=== PATIENT | male | born 1965 | race Caucasian/White ===

== ENCOUNTER 2020-11-27 06:31 | Outpatient (REF) | payer OTHER, SELFPAY ==
[2020-11-27 12:04] LABS: Alanine Aminotransferase 17 U/L (0-40); Albumin Level 4.2 g/dL (3.5-5.0); Alkaline Phosphatase 88 U/L (39-117); Anion Gap 12 (12-20); Aspartate Amino Transferase 16 U/L (5-37); Bilirubin Total 0.5 mg/dL (0.0-1.0); Blood Urea Nitrogen 20 mg/dL (9-16); Calcium 9.2 mg/dL (8.4-10.2); Carbon Dioxide 29 mmol/L (22-29); Chloride 105 mmol/L (96-108); Cholesterol 238 mg/dL; Estimated Glomerular Filt Rate > 60; Glucose Fasting 107 mg/dL (60-99); HDL Cholesterol 31 mg/dL; Potassium 4.7 mmol/L (3.3-5.1); Sodium 141 mmol/L (135-145); Total Protein 7.3 g/dL (6.5-8.0); Triglycerides 409 mg/dL
[2020-11-27 12:31] LABS: Prostate Specific Antigen Scr 0.93 ng/mL (<0.05-4.0); TSH reflex Free T4 1.27 uIU/mL (0.32-4.0)
== END 2020-11-27 06:32 | disposition home or self-care (01) ==
LOC: HO.HMGCLDS 06:31
PROVIDERS: PCP Nurse Practitioner Family; Visit Provider Nurse Practitioner Family
DX: Z00.00 Encounter for general adult medical examination without abnormal findings (principal); Z12.5 Encounter for screening for malignant neoplasm of prostate
CPT/HCPCS: 36415; 80053; 80061; 84153; 84443

== ENCOUNTER 2021-06-08 06:02 | Outpatient (REF) | payer OTHER, SELFPAY ==
[2021-06-08 11:47] LABS: Alanine Aminotransferase 19 U/L (0-40); Albumin Level 4.4 g/dL (3.5-5.0); Alkaline Phosphatase 74 U/L (39-117); Anion Gap 14 (12-20); Aspartate Amino Transferase 17 U/L (5-37); Bilirubin Total 0.8 mg/dL (0.0-1.0); Blood Urea Nitrogen 12 mg/dL (9-16); Calcium 9.7 mg/dL (8.4-10.2); Carbon Dioxide 26 mmol/L (22-29); Chloride 106 mmol/L (96-108); Cholesterol 212 mg/dL; Estimated Glomerular Filt Rate > 60; Glucose Fasting 100 mg/dL (60-99); HDL Cholesterol 32 mg/dL; LDL Cholesterol Calculated 130 mg/dl; Potassium 4.5 mmol/L (3.3-5.1); Sodium 141 mmol/L (135-145); Total Protein 7.6 g/dL (6.5-8.0); Triglycerides 250 mg/dL
== END 2021-06-08 06:03 | disposition home or self-care (01) ==
LOC: HO.HMGCLDS 06:02
PROVIDERS: PCP Nurse Practitioner Family; Visit Provider Nurse Practitioner Family
DX: E78.5 Hyperlipidemia, unspecified (principal)
CPT/HCPCS: 36415; 80053; 80061

== ENCOUNTER 2021-12-07 07:45 | Outpatient (REF) | payer OTHER, SELFPAY ==
[2021-12-07 11:59] LABS: Cholesterol 222 mg/dL; HDL Cholesterol 37 mg/dL; LDL Cholesterol Calculated 154 mg/dl; Triglycerides 156 mg/dL
== END 2021-12-07 07:46 | disposition home or self-care (01) ==
LOC: HO.HMGCLDS 07:45
PROVIDERS: Visit Provider Nurse Practitioner Family
DX: E78.5 Hyperlipidemia, unspecified (principal)
CPT/HCPCS: 36415; 80061

== ENCOUNTER 2022-01-11 06:03 | Outpatient (REF) | payer OTHER, SELFPAY ==
[2022-01-11 11:32] LABS: MANUAL DIFF FLAG NO
[2022-01-11 11:48] LABS: Basophils Percent Auto 0.3 % (0-2); Eosinophils Absolute Auto 0.3 X10*3/uL (0.0-0.4); Eosinophils Percent Auto 3.4 % (0-4); Hemoglobin 15.1 g/dl (14.0-18.0); Imm Gran Abs Auto 0.02 X10*3/uL (0.00-0.03); Imm Gran Pct Auto 0.2 % (0.0-0.4); Lymphocytes Absolute Auto 2.3 X10*3/uL (1.2-4.9); Lymphocytes Percent Auto 25.9 % (20-40); Mean Corpuscular HGB Conc 33.6 g/dl (31.0-36.0); Mean Corpuscular Hemoglobin 30.8 pg (27.0-33.0); Mean Corpuscular Volume 91.6 fL (80.0-98.0); Mean Platelet Volume 10.7 fL (9.4-12.4); Monocytes Absolute Auto 0.8 X10*3/uL (0.1-1.2); Monocytes Percent Auto 8.4 % (2-11); Neutrophils Absolute Auto 5.6 x10*3/uL (2.0-8.3); Neutrophils Percent Auto 61.8 % (45-73); Platelet Count 180 X10*3/uL (160-400); Red Blood Count 4.91 X10*6/uL (4.60-5.80); Red Cell Distribution Width 13.2 % (11.0-16.0)
[2022-01-11 12:37] LABS: HBS Num1 2.23 mIU/mL (0-7.99); HBsAGNum1 0.31 S/CO (0.00-0.99); Hepatitis B Core Antibody Nonreactive (Nonreactive); Hepatitis B Surface Antigen Negative (Negative); ~HepC Num1 0.09 S/CO (0.00-0.79); ~Hepatitis B Surface Antibody NONREACTIVE (Nonreactive); ~Hepatitis C Antibody Nonreactive (Nonreactive)
[2022-01-12 05:00] LABS: Hepatitis A Antibody IgM 0.11 Index (0-0.79); ~Hepatitis A Antibody IgM Nonreactive (Nonreactive)
[2022-01-14 00:52] LABS: TS Negative Control Passed; TS Panel A 2; TS Panel B 2; TS Positive Control Passed; TSpotTB Negative (Negative)
== END 2022-01-11 06:04 | disposition home or self-care (01) ==
LOC: HO.HMGCLDS 06:03
PROVIDERS: PCP Nurse Practitioner Family; Visit Provider Nurse Practitioner Family
DX: Z01.84 Encounter for antibody response examination (principal); Z11.1 Encounter for screening for respiratory tuberculosis; Z28.39 Other underimmunization status
CPT/HCPCS: 36415; 85025; 86481; 86704; 86706; 86709; 86735; 86762; 86765; 86787; 86803; 87340

== ENCOUNTER 2022-01-14 13:23 | Outpatient (REF) | payer OTHER, SELFPAY ==
--- NOTE | ~2022-01-14 | CT_ITS ---
EXAMINATION: CT CHEST SCREENING CLINICAL INFORMATION: Smoker. Lung screening COMPARISON: None. TECHNIQUE: Multidetector volumetric CT imaging of the chest is performed without contrast using low dose technique. Additional 2D coronal and sagittal reformatted images and axial 3D maximum intensity projection (MIP) images are generated on the CT workstation. This CT examination was performed using dose optimization techniques as appropriate, variously including the following: *Automated exposure control *Adjustment of mA and/or kV according to patient size (this includes techniques or standardized protocols for targeted exams where dose is matched to indication/reason for exam; i.e. extremities or head) *Use of iterative reconstruction technique DLP: 344 mGy-cm FINDINGS: LUNGS: The lungs are well expanded and clear of acute pneumonic process. There is a 3 mm nodular calcification in the right lower lobe axial image 344/7. No additional pulmonary nodules, mass or consolidation are seen. MEDIASTINUM: The thyroid lobes are symmetric and normal. The central trachea and the bronchi are widely patent. The heart size and the great vessels are normal in caliber. No pericardial effusion is seen. PLEURA: There is no pleural effusion. No pleural mass or thickening. AXILLA: No abnormal axillary lymph nodes are seen. UPPER ABDOMEN: Visualized liver, spleen, pancreas and bilateral adrenal glands appear unremarkable. OSSEOUS STRUCTURES: There is moderate ventral spondylosis of the mid and lower dorsal spine. No lytic process. CT/CT lung screening IMPRESSION: Solitary 3 mm calcified nodule. No additional noncalcified nodules, mass or consolidation. ASSESSMENT: Lung-RADS category 2: Benign. RECOMMENDATION: Low-dose annual CT chest.
== END 2022-01-14 13:24 | disposition home or self-care (01) ==
LOC: HO.CT 13:23
PROVIDERS: PCP Nurse Practitioner Family; Visit Provider Physician Assistant Medical
DX: Z12.2 Encounter for screening for malignant neoplasm of respiratory organs (principal); F17.210 Nicotine dependence, cigarettes, uncomplicated
CPT/HCPCS: 71271; G0296

== ENCOUNTER 2022-04-30 07:00 | Outpatient (REF) | payer OTHER, SELFPAY ==
[2022-04-30 07:17] LABS: MANUAL DIFF FLAG NO
[2022-04-30 08:30] LABS: Basophils Percent Auto 0.6 % (0-2); Eosinophils Absolute Auto 0.2 X10*3/uL (0.0-0.4); Eosinophils Percent Auto 3.2 % (0-4); Hematocrit 43.1 % (42.0-52.0); Hemoglobin 14.6 g/dl (14.0-18.0); Imm Gran Abs Auto 0.02 X10*3/uL (0.00-0.03); Imm Gran Pct Auto 0.3 % (0.0-0.4); Lymphocytes Absolute Auto 1.8 X10*3/uL (1.2-4.9); Mean Corpuscular HGB Conc 33.9 g/dl (31.0-36.0); Mean Corpuscular Hemoglobin 30.8 pg (27.0-33.0); Mean Corpuscular Volume 90.9 fL (80.0-98.0); Mean Platelet Volume 10.5 fL (9.4-12.4); Monocytes Absolute Auto 0.5 X10*3/uL (0.1-1.2); Monocytes Percent Auto 8.6 % (2-11); Neutrophils Absolute Auto 3.7 x10*3/uL (2.0-8.3); Neutrophils Percent Auto 58.3 % (45-73); Platelet Count 184 X10*3/uL (160-400); Red Blood Count 4.74 X10*6/uL (4.60-5.80); Red Cell Distribution Width 12.4 % (11.0-16.0); White Blood Count 6.3 X10*3/uL (4.8-10.8)
[2022-04-30 09:09] LABS: Alanine Aminotransferase 16 U/L (0-40); Albumin Level 4.2 g/dL (3.5-5.0); Alkaline Phosphatase 80 U/L (39-117); Anion Gap 12 (12-20); Aspartate Amino Transferase 14 U/L (5-37); Bilirubin Total 0.6 mg/dL (0.0-1.0); Blood Urea Nitrogen 15 mg/dL (9-16); Carbon Dioxide 26 mmol/L (22-29); Chloride 106 mmol/L (96-108); Cholesterol 146 mg/dL; Estimated Glomerular Filt Rate > 60; Glucose Fasting 101 mg/dL (60-99); HDL Cholesterol 30 mg/dL; LDL Cholesterol Calculated 89 mg/dl; Sodium 140 mmol/L (135-145); Total Protein 7.1 g/dL (6.5-8.0); Triglycerides 136 mg/dL
[2022-04-30 09:34] LABS: Prostate Specific Antigen Scr 0.77 ng/mL (<0.05-4.0)
[2022-04-30 10:33] LABS: Appearance Urine Clear; Color Urine Yellow; Glucose Urine UA Negative (Negative); Leukocyte Esterase Urine Negative (Negative); Nitrite Urine Negative (Negative); Urine Blood Negative (Negative); Urine Ketones Negative (Negative); Urine Protein Negative (Neg-Trace)
== END 2022-04-30 07:01 | disposition home or self-care (01) ==
LOC: HO.LAB 07:00
PROVIDERS: PCP Nurse Practitioner Family; Visit Provider Nurse Practitioner Family
DX: Z00.00 Encounter for general adult medical examination without abnormal findings (principal); Z13.220 Encounter for screening for lipoid disorders; Z13.29 Encounter for screening for other suspected endocrine disorder; Z12.5 Encounter for screening for malignant neoplasm of prostate
CPT/HCPCS: 36415; 80053; 80061; 81003; 84153; 84443; 85025

== ENCOUNTER 2022-07-05 09:16 | Outpatient (REF) | payer OTHER, SELFPAY ==
--- NOTE | ~2022-07-05 | XR_ITS ---
EXAMINATION: XR HAND, RIGHT CLINICAL INFORMATION: Pain in 1st and 3rd digits. COMPARISON: None TECHNIQUE: PA, lateral, and oblique views of the right hand. FINDINGS: There is a 2 mm radiopaque foreign body along the volar aspect of the proximal phalanx 2nd digit. A thin radiopaque linear density is seen along the ulnar aspect of the mid phalanx 4th digit. The joint spaces are maintained normal. No bony erosive changes seen. There is mild periarticular spurring of the DIP joint 5th digit. XR/XR hand RT min 3V IMPRESSION: Two radiopaque foreign bodies seen along the 2nd and the 4th digits, as described above. Mild degenerative periarticular spurring of the DIP joint 5th digit.
== END 2022-07-05 09:17 | disposition home or self-care (01) ==
LOC: HO.HOSX 09:16
PROVIDERS: Visit Provider Physician Assistant
DX: M65.311 Trigger thumb, right thumb (principal)
CPT/HCPCS: 73130; 99202

== ENCOUNTER 2023-02-22 15:37 | Outpatient (AMB) | payer OTHER, SELFPAY ==
--- NOTE | 2023-02-22 16:03 | A.OFFPC_ITS ---
Vital Signs 02/22/23 16:06 Height 5 ft 6 in Weight 224 lb 4 oz BMI 36.2 BP 118/86 Blood Pressure Location Lt brachial Position Sitting Pulse 79 Pulse Source Pulse Oximeter Pulse Oximetry (%) 96 Oxygen Delivery Method Room Air Intake Visit Reasons: PE Allergies sertraline Allergy (Unknown, Verified 02/22/23 18:07) severe depression Medication List - Last Reconciled 02/22/23 by BRITTNEE Phillips atorvastatin 20 mg PO BEDTIME 90 days Tobacco use date assessed: 02/22/23 Dental Screening Dental Screen Date: 02/22/23 Did you have a dental visit in the last 12 months?: No Did you have a dental problem in the last 6 months where you did not have access to dental care?: No Was dental information given to patient?: No HPI PE HPI Details Pt is here for a PE. Will order labs. Colon screen is up to date. Due for PSA in April, will order. Denies dribbling with urination, nocturia, and weak stream, does report difficulty emptying his bladder. Pt is part of the low- dose CT program and is due for repeat, will contact thoracic office. [facility] Medical History Family history of colonic polyps Personal history of nicotine dependence Surgical History History of colonoscopy History of left knee surgery (~2015) History of surgery on arm Family History Father No problems noted. Mother No problems noted. Social History Housing: Other (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 How often do you have a drink containing alcohol?: Never 3. How often do you have six or more drinks on one occasion?: Never Total Score: 0 NELSON-7 AMB Questionnaire NELSON-7 Date NELSON - 7 assessed: 12/13/21 Feeling nervous, anxious, or on edge: 0 = Not at all Not being able to stop or control worryin = Not at all Worrying too much about different things: 0 = Not at all Trouble relaxin = Not at all Being so restless that it is hard to sit still: 0 = Not at all Becoming easily annoyed or irritable: 0 = Not at all Feeling afraid as if something awful might happen: 0 = Not at all Total NELSON-7 score (0-4 normal; 5-9 mild; 10-14 moderate; 15-21 severe): 0 Source: Developed by Drs. Zander Jorge, Rayna Cosme, Duane Ortiz and colleagues, with an educational floresita from [employer]. Review of Systems Const Denies chills and Denies fever(s) Eyes Denies blurry vision ENT Denies vertigo, Denies dizziness and Denies sore throat Card Denies chest pain at rest, Denies chest pain with activity, Denies diaphoresis, Denies dyspnea and Denies dyspnea on exertion Resp Denies cough, Denies dyspnea, Denies dyspnea on exertion and Denies wheezing GI Denies abdominal pain, Denies melena, Denies hematochezia, Denies constipation, Denies diarrhea and Denies loose stools Denies hematuria Musc Denies numbness and Denies tingling Skin/Breast Denies lesions Neuro Denies vertigo, Denies dizziness, Denies numbness and Denies tingling Psych Denies anxiety, Denies depression, Denies homicidal ideation, Denies suicidal ideation and Denies other (substance abuse) Aller/Immun Denies wheezing Physical exam (Primary Care) Vital Signs: Last Vital Signs Pulse 79 02/22/23 16:06 BP 118/86 02/22/23 16:06 Pulse Ox 96 02/22/23 16:06 Oxygen Delivery Method Room Air 02/22/23 16:06 BMI result Body Mass Index 36.2 Tobacco/Smoking Status: Tobacco use Status Tobacco use date assessed 02/22/23 02/22/23 16:10 Patient Tobacco Use Status Current everyday Tobacco 02/22/23 16:05 e-Cigarette/Vaping Use Never Used 02/22/23 16:05 Thrive Assessment: Date of Thrive Assessment Date Thrive assessed 12/13/21 02/22/23 16:05 Const General: cooperative Nutritional Appearance: obese Orientation/consciousness: patient oriented x3 HENMT Head: Yes normal to inspection, Yes normocephalic and Yes atraumatic Ears: TM's normal bilaterally Eyes General: appearance normal, both eyes and all related structures Alignment and Position: alignment normal and position normal Neck Neck: Yes normal visual inspection and Yes no lymphadenopathy Thyroid: Thyroid normal Resp Effort & Inspection: normal respiratory effort Auscultation: clear to auscultation bilaterally Cardio Rate: regular rate Rhythm: regular rhythm Heart sounds: S1 normal heart sound present, S2 normal heart sound present and no murmurs GI Palpation (GI): Soft to palpation and nontender Auscultation: normal bowel sounds Male General Exam: Yes normal external exam Penis: normal penis Scrotum: scrotum normal, testes descended bilaterally and no inguinal hernias Testes: no testicular mass Skin Rashes: no rashes Neuro General: patient oriented x3, moves all extremities, no focal motor deficits and deep tendon reflexes 2+ bilaterally Romberg Test: Negative Psych Appearance: grossly normal Mental Status: mental status grossly normal Speech and movement: Normal speech and movement present Affect: normal affect Attitude: cooperative Thought process: Normal thought process present Thought content: Normal thought content present Insight: Good insight present (Psych) Judgement: Good judgement present (Psych) Assessment and Plan Assessment & Plan (1) Physical exam: Code(s): Z00.00 - Encounter for general adult medical examination without abnormal findings Plan: Labs ordered (2) Screening PSA (prostate specific antigen): Code(s): Z12.5 - Encounter for screening for malignant neoplasm of prostate Plan: PSA ordered Plan The patient agreed to the use of a medical economics consultant for this encounter. Scribed for Gopal Cornelius, GROUND SURVEILLANCE SYSTEMS OPERATOR-BC by Kelsea Hahn, medical economics consultant, on 02/22/2023 at 16:15 EST. Orders: Orders Comprehensive [place]. Panel Fast Today Z00.00 - Encounter for general adult medical examination without abnormal findings Lipid Panel Today Z00.00 - Encounter for general adult medical examination without abnormal findings TSH reflex Free T4 Today Z00.00 - Encounter for general adult medical examination without abnormal findings Complete Blood Count Auto Diff Today Z00.00 - Encounter for general adult medical examination without abnormal findings UA CC w/rflx Micro + Cult Today Z00.00 - Encounter for general adult medical examination without abnormal findings Prostate Specific Antigen Scr Today Z12.5 - Encounter for screening for malignant neoplasm of prostate Coding Level of Care Code Est Pt Prev Care 40-64y(00408) Diagnoses Physical exam Z00.00 Screening PSA (prostate specific antigen) Z12.5
[2023-02-22 16:06] VITALS: BP 118/86; PULSE 79; O2SAT 96; BMI 36.2
== END 2023-02-22 16:55 | disposition home or self-care (01) ==
PROVIDERS: Visit Provider Nurse Practitioner Family
DX: Z00.00 Encounter for general adult medical examination without abnormal findings (principal); Z12.5 Encounter for screening for malignant neoplasm of prostate
CPT/HCPCS: 99396

== ENCOUNTER 2023-03-30 08:29 | Outpatient (REF) | payer OTHER, SELFPAY ==
--- NOTE | ~2023-03-30 | CT_ITS ---
EXAMINATION: CT CHEST LOW-DOSE SCREENING WITHOUT CONTRAST HISTORY: Asymptomatic patient meeting criteria for lung screening. PATIENT PACK-YEAR HISTORY: Current Smoker: Yes If former smoker, years since quitting: COMPARISON: 01/14/2022 TECHNIQUE: Multidetector volumetric non-contrast CT imaging of the chest was performed using low dose screening CT technique. Axial thin section 0.625 mm reformations in soft tissue and lung windows were obtained. Sagittal and coronal reformations were obtained. Axial MIP images were also created and reviewed. RECONSTRUCTED WIDTH: 1.25 mm x 1.25 mm TOTAL EXAM DLP: 68 mGy-cm CTDIvol: 1.74 L mGy FINDINGS: LUNGS: Mild centrilobular emphysema. No suspicious pulmonary nodule. No focal consolidation. Central airways are patent. PLEURA: No pleural effusion. LYMPH NODES: No bulky mediastinal, hilar or axillary lymphadenopathy. MEDIASTINUM: Ascending thoracic aorta measures 4.1 x 4.1 cm. Heart size is normal. No pericardial effusion. CORONARY ARTERY CALCIFICATIONS: None. CHEST WALL/BREASTS: No acute abnormality. UPPER ABDOMEN: This study was performed without contrast and with lower than standard dose, reducing the sensitivity for detection of small lesions in the upper abdomen. OSSEOUS STRUCTURES: No destructive bone lesion. CT/CT lung screening IMPRESSION: No suspicious pulmonary nodule. LUNG-RADS CATEGORY ASSESSMENT: 1. Negative. No nodules or definitely benign nodules. Continue annual screening with low-dose CT in 12 months. Probability of malignancy less than 1%. INCIDENTAL FINDINGS (S CATEGORY): Finding: No incidental findings. Significance category: Normal or normal variant. RECOMMENDATION: Low dose lung CT. overall in 1 year. Visual estimate of coronary calcified plaque burden: None. However, this exam cannot replace a dedicated cardiac CT calcium score for accurate assessment. LUNG-RADS CATEGORY: 1 -- NEGATIVE
== END 2023-03-30 08:30 | disposition home or self-care (01) ==
LOC: HO.CT 08:29
PROVIDERS: PCP Nurse Practitioner Family; Visit Provider Physician Assistant Medical
DX: Z12.2 Encounter for screening for malignant neoplasm of respiratory organs (principal); F17.210 Nicotine dependence, cigarettes, uncomplicated
CPT/HCPCS: 71271

== ENCOUNTER 2024-02-09 07:32 | Outpatient (REF) | payer OTHER, SELFPAY ==
[2024-02-09 10:01] LABS: MANUAL DIFF FLAG NO
[2024-02-09 10:17] LABS: Basophils Percent Auto 0.5 % (0-2); Eosinophils Absolute Auto 0.3 X10*3/uL (0.0-0.4); Eosinophils Percent Auto 3.9 % (0-4); Hematocrit 46.6 % (42.0-52.0); Hemoglobin 16.2 g/dl (14.0-18.0); Imm Gran Abs Auto 0.02 X10*3/uL (0.00-0.03); Imm Gran Pct Auto 0.3 % (0.0-0.4); Lymphocytes Absolute Auto 2.2 X10*3/uL (1.2-4.9); Lymphocytes Percent Auto 33.4 % (20-40); Mean Corpuscular HGB Conc 34.8 g/dl (31.0-36.0); Mean Corpuscular Hemoglobin 31.7 pg (27.0-33.0); Mean Corpuscular Volume 91.2 fL (80.0-98.0); Mean Platelet Volume 10.9 fL (9.4-12.4); Monocytes Absolute Auto 0.5 X10*3/uL (0.1-1.2); Monocytes Percent Auto 7.8 % (2-11); Neutrophils Absolute Auto 3.5 x10*3/uL (2.0-8.3); Neutrophils Percent Auto 54.1 % (45-73); Platelet Count 164 X10*3/uL (160-400); Red Blood Count 5.11 X10*6/uL (4.60-5.80); Red Cell Distribution Width 12.9 % (11.0-16.0); White Blood Count 6.4 X10*3/uL (4.8-10.8)
[2024-02-09 10:20] LABS: Appearance Urine Clear; Color Urine Yellow; Glucose Urine UA Negative (Negative); Leukocyte Esterase Urine Negative (Negative); Nitrite Urine Negative (Negative); PH 5.5 (5.0-9.0); Specific Gravity - Urine 1.015 (1.005-1.025); Urine Blood Negative (Negative); Urine Ketones Negative (Negative); Urine Protein Negative (Neg-Trace)
[2024-02-09 10:45] LABS: Alanine Aminotransferase 17 U/L (0-40); Albumin Level 4.1 g/dL (3.5-5.0); Alkaline Phosphatase 80 U/L (39-117); Anion Gap 12 (12-20); Aspartate Amino Transferase 20 U/L (5-37); Bilirubin Total 0.6 mg/dL (0.0-1.0); Blood Urea Nitrogen 13 mg/dL (9-16); Calcium 9.3 mg/dL (8.4-10.2); Carbon Dioxide 24 mmol/L (22-29); Chloride 107 mmol/L (96-108); Cholesterol 261 mg/dL (<200); Estimated Glomerular Filt Rate > 60; Glucose Fasting 106 mg/dL (60-99); HDL Cholesterol 34 mg/dL (>40); LDL Cholesterol Calculated 163 mg/dL (<100); Potassium 4.1 mmol/L (3.3-5.1); Sodium 139 mmol/L (135-145); Total Protein 7.7 g/dL (6.5-8.0); Triglycerides 324 mg/dL (<150)
[2024-02-09 11:08] LABS: TSH reflex Free T4 1.58 uIU/mL (0.32-4.0)
== END 2024-02-09 07:33 | disposition home or self-care (01) ==
LOC: HO.HMGCLDS 07:32
PROVIDERS: PCP Nurse Practitioner Family; Visit Provider Nurse Practitioner Family
DX: Z00.00 Encounter for general adult medical examination without abnormal findings (principal); Z12.5 Encounter for screening for malignant neoplasm of prostate
CPT/HCPCS: 36415; 80053; 80061; 81003; 84153; 84443; 85025

== ENCOUNTER 2024-03-05 11:14 | Outpatient (AMB) | payer OTHER, SELFPAY ==
[2024-03-05 11:21] VITALS: BP 104/80; PULSE 87; O2SAT 95; BMI 36.3
--- NOTE | 2024-03-05 11:21 | MHC.PC.OV ---
Vital Signs 03/05/24 11:21 Height 5 ft 6 in Weight 225 lb BMI 36.3 BP 104/80 Blood Pressure Location Lt brachial Position Sitting Pulse 87 Pulse Source Pulse Oximeter Pulse Oximetry (%) 95 Oxygen Delivery Method Room Air Intake Visit Reasons: PE Intake Note: patient is here for annual exam Allergies sertraline Allergy (Unknown, Verified 03/05/24 11:23) severe depression Medication List - Last Reconciled 03/05/24 by BRITTNEE Phillips No Known Home Meds Tobacco use date assessed: 03/05/24 Dental Screening Dental Screen Date: 02/22/23 HPI PE HPI Details Pt is here for a PE. Labs were already performed. PSA is up to date. Denies dribbling with urination, weak stream, and frequent nocturia. Due for colon screen in April, will refer to GI. Pt is a smoker, goes for low-dose CTs. Pt c/o left shoulder pain. Will order XR. Pt will restart his atorvastatin. Will repeat labs in 2 months. ? bilat thyroid nodules on exam. Will order US. [facility] Medical History Dyslipidemia Obesity Nicotine dependence, cigarettes, uncomplicated Family history of colonic polyps Surgical History History of colonoscopy History of surgery on arm History of left knee surgery (~2015) Family History Father No problems noted. Mother No problems noted. 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 1. Little interest or pleasure in doing things: not at all 2. Feeling down, depressed, or hopeless: not at all 3. Trouble falling or staying asleep, or sleeping too much: several days 4. Feeling tired or having little energy: not at all 5. Poor appetite or overeating: not at all 6. Feeling bad about yourself - or that you are a failure or have let yourself or your family down: not at all 7. Trouble concentrating on things, such as reading the newspaper or watching television: not at all 8. Moving or speaking so slowly that other people could have noticed. Or the opposite - being so fidgety or restless that you have been moving around a lot more than usual: not at all 9. Thoughts that you would be better off or of hurting yourself in some way: not at all Total score: 1 Depression Screening Interpretation: Negative Depression Screening Done: Yes 14267 - PHQ-9 Billing: Yes Source: Developed by Drs. Zander Jorge, Rayna Cosme, Duane Ortiz and colleagues, with an educational floresita from [employer]. Thrive Questionnaire Date Thrive assessed: 03/05/24 I am a: Patient What is your living situation today?: I have a steady place to live Within the past 12 months, did the food you bought not last and you didn't have the money to get more?: Never true Within the past 12 months, did you worry whether your food would run out before you got money to buy more?: Never true Do you have trouble paying for medicines?: No Do you have trouble getting transportation to medical appointments?: No Do you have trouble paying your heating and electricity bill?: No Do you have trouble taking care of your child, family member or friend?: No Do you have trouble with day-to-day activities such as bathing, preparing meals, shopping, managing finances, etc.?: No Are you currently unemployed and looking for a job?: No Are you interested in more education?: No Please select the resources that you would like help with: None Currently or been in a relationship where the following occur: No concerns reported THRIVE Score: 0 AUDIT C Alcohol Use Questionnaire (AUDIT-C) 1. How often do you have a drink containing alcohol?: Monthly or less 2. How many drinks containing alcohol do you have on a typical day when you are drinking?: 3 or 4 3. How often do you have six or more drinks on one occasion?: Never Total Score: 2 Score Reviewed/Action Taken: Yes NELSON-7 AMB Questionnaire NELSON-7 Date NELSON - 7 assessed: 12/13/21 Feeling nervous, anxious, or on edge: 0 = Not at all Not being able to stop or control worryin = Not at all Worrying too much about different things: 0 = Not at all Trouble relaxin = Not at all Being so restless that it is hard to sit still: 0 = Not at all Becoming easily annoyed or irritable: 0 = Not at all Feeling afraid as if something awful might happen: 0 = Not at all Total NELSON-7 score (0-4 normal; 5-9 mild; 10-14 moderate; 15-21 severe): 0 Source: Developed by Drs. Zander Jorge, Rayna Cosme, Duane Ortiz and colleagues, with an educational floresita from [employer]. NELSON-7 Assessment Billing NELSON-7 Assessment Tool: NELSON-7 Assessment 75127 Review of Systems Const Denies chills and Denies fever(s) Eyes Denies blurry vision ENT Denies vertigo, Denies dizziness and Denies sore throat Card Denies chest pain at rest, Denies chest pain with activity, Denies diaphoresis, Denies dyspnea and Denies dyspnea on exertion Resp Denies cough, Denies dyspnea, Denies dyspnea on exertion and Denies wheezing GI Denies abdominal pain, Denies melena, Denies hematochezia, Denies constipation, Denies diarrhea and Denies loose stools Denies hematuria Musc Denies numbness and Denies tingling Skin/Breast Denies lesions Neuro Denies vertigo, Denies dizziness, Denies numbness and Denies tingling Psych Denies anxiety, Denies depression, Denies homicidal ideation, Denies suicidal ideation and Denies other (substance abuse) Aller/Immun Denies wheezing Physical exam (Primary Care) Vital Signs: Last Vital Signs Pulse 87 03/05/24 11:21 BP 104/80 03/05/24 11:21 Pulse Ox 95 08/27/24 11:21 Oxygen Delivery Method Room Air 03/05/24 11:21 BMI result Body Mass Index 36.3 Tobacco/Smoking Status: Tobacco use Status Tobacco use date assessed 03/05/24 03/05/24 11:25 Patient Tobacco Use Status Current everyday Tobacco 03/05/24 11:21 e-Cigarette/Vaping Use Never Used 03/05/24 11:21 PHQ-9: PHQ-9 Score PHQ-9: Total score 1 03/05/24 11:25 Depression Screening Interpretation: Negative Thrive Assessment: Date of Thrive Assessment Date Thrive assessed 03/05/24 03/05/24 11:25 Currently or been in a relationship where the following occur: No concerns reported Const General: cooperative Nutritional Appearance: obese Orientation/consciousness: patient oriented x3 HENMT Head: Yes normal to inspection, Yes normocephalic and Yes atraumatic Ears: TM's normal bilaterally Eyes General: appearance normal, both eyes and all related structures Alignment and Position: alignment normal and position normal Neck Other: ? bilat thyroid nodules Neck: Yes normal visual inspection, Yes no lymphadenopathy and Yes supple Resp Effort & Inspection: normal respiratory effort Auscultation: clear to auscultation bilaterally Cardio Rate: regular rate Rhythm: regular rhythm Heart sounds: S1 normal heart sound present, S2 normal heart sound present and no murmurs GI Palpation (GI): Soft to palpation and nontender Auscultation: normal bowel sounds Other: refused NICOLETTE Male General Exam: Yes normal external exam Penis: normal penis Scrotum: scrotum normal, testes descended bilaterally and no inguinal hernias Testes: no testicular mass Skin Rashes: no rashes Neuro General: patient oriented x3, moves all extremities, no focal motor deficits and deep tendon reflexes 2+ bilaterally Romberg Test: Negative Extrem Other: left shoulder: + neers, + love, + jobes Psych Appearance: grossly normal Mental Status: mental status grossly normal Speech and movement: Normal speech and movement present Affect: normal affect Attitude: cooperative Thought process: Normal thought process present Thought content: Normal thought content present Insight: Good insight present (Psych) Judgement: Good judgement present (Psych) Assessment and Plan Assessment & Plan (1) Family history of colonic polyps: Comment: (+fam hx polyps in sister. he had normal scope 2019 - plan is 5yr repeat) Code(s): Z83.71 - Family history of colonic polyps Plan: Referred to GI (2) Screening for colon cancer: Code(s): Z12.11 - Encounter for screening for malignant neoplasm of colon Plan: referred to gastro (3) Physical exam: Code(s): Z00.00 - Encounter for general adult medical examination without abnormal findings Plan: Labs already performed (4) Thyroid nodule: Code(s): E04.1 - Nontoxic single thyroid nodule Plan: US ordered (5) Dyslipidemia: Code(s): E78.5 - Hyperlipidemia, unspecified Plan: restart atorvastatin, repeat lipids in 2 months (6) Chronic left shoulder pain: Code(s): M25.512 - Pain in left shoulder; G89.29 - Other chronic pain Plan: XR left shoulder Plan The patient agreed to the use of a medical laboratory technical officer for this encounter. Scribed for LENORE Hoffman-BC by Kelsea Hahn medical laboratory technical officer, on 03/05/2024 at 11:40 EST. Orders: Orders Lipid Panel 2 Months E78.5 - Hyperlipidemia, unspecified XR shoulder LT min 2V Today G89.29 - Other chronic pain, M25.512 - Pain in left shoulder US thyroid Today E04.1 - Nontoxic single thyroid nodule Comprehensive [place]. Panel Fast 2 Months E78.5 - Hyperlipidemia, unspecified Referrals Gastroenterology Referral Z12.11 - Encounter for screening for malignant neoplasm of colon, Z83.71 - Family history of colonic polyps Medications: New atorvastatin 20 mg PO BEDTIME 90 tabs 0RF Coding Level of Care Code Est Pt Prev Care 40-64y(66029) Diagnoses Family history of colonic polyps Z83.71 Screening for colon cancer Z12.11 Physical exam Z00.00 Thyroid nodule E04.1 Dyslipidemia E78.5 Chronic left shoulder pain M25.512; G89.29 Additional Codes NELSON-7 Assessment Billing - NELSON-7 Assessment Tool: NELSON-7 Assessment [id number] ([id number])
== END 2024-03-05 11:52 | disposition home or self-care (01) ==
PROVIDERS: PCP Nurse Practitioner Family; Visit Provider Nurse Practitioner Family
DX: Z00.00 Encounter for general adult medical examination without abnormal findings (principal); E04.1 Nontoxic single thyroid nodule; E78.5 Hyperlipidemia, unspecified; M25.512 Pain in left shoulder; G89.29 Other chronic pain; Z83.719 Family history of colon polyps, unspecified; Z12.11 Encounter for screening for malignant neoplasm of colon
CPT/HCPCS: 99396

== ENCOUNTER 2024-03-14 09:17 | Outpatient (REF) | payer OTHER, SELFPAY ==
--- NOTE | ~2024-03-14 | XR_ITS ---
EXAMINATION: XR SHOULDER, LEFT CLINICAL INFORMATION: Left shoulder pain. COMPARISON: None available. TECHNIQUE: AP external rotation, Grashey, scapular Y, and axillary views of the left shoulder. FINDINGS: Acromioclavicular joint space narrowing with marginal osteophytes. No glenohumeral joint space narrowing or marginal osteophytes. No acute fracture or dislocation. No concerning lytic or blastic osseous lesion. No abnormal soft tissue calcification. XR/XR shoulder LT min 2V IMPRESSION: Moderate acromioclavicular osteoarthritis. Electronically signed by: Paul Weintsein MD 03/20/2024 12:02 PM EDT
--- NOTE | ~2024-03-14 | US_ITS ---
EXAMINATION: US THYROID CLINICAL INFORMATION: Nontoxic single thyroid nodule. COMPARISON: None available. TECHNIQUE: Linear transducer grayscale and color Doppler examination with attention to the region of the thyroid. FINDINGS: SIZE: Measurements of the thyroid lobes and nodules are given in sagittal, anteroposterior and transverse dimensions respectively. Right Thyroid Lobe: 5.3 x 1.8 x 1.6 cm, volume 8.1 mL. Parenchyma: The gland echotexture is homogeneous. Thyroid vascularity is normal. Left Thyroid Lobe: 4.2 x 1.5 x 1.2 cm, volume 3.8 mL. Parenchyma: The gland echotexture is homogeneous. Thyroid vascularity is normal. Isthmus: 0.36 cm in maximum AP dimension. Estimated total number of nodules greater than or equal to 1 cm: 0. NODES: No lymphadenopathy is seen in the tissue surrounding the thyroid gland. US/US thyroid IMPRESSION: Nonspecific asymmetric enlargement of the right lobe of the thyroid, otherwise normal examination. No discrete thyroid nodules. Electronically signed by: Elis Coreas MD 04/02/2024 04:19 PM EDT
== END 2024-03-14 09:18 | disposition home or self-care (01) ==
LOC: HO.HMGCX 09:17
PROVIDERS: PCP Nurse Practitioner Family; Visit Provider Nurse Practitioner Family
DX: E04.1 Nontoxic single thyroid nodule (principal); M25.512 Pain in left shoulder; G89.29 Other chronic pain
CPT/HCPCS: 73030; 76536

== ENCOUNTER 2024-04-03 08:57 | Outpatient (REF) | payer OTHER, SELFPAY ==
--- NOTE | ~2024-04-03 | CT_ITS ---
EXAMINATION: CT LOW-DOSE SCREENING CHEST WITHOUT CONTRAST CLINICAL INFORMATION: Current smoker, 1 pack per day for 45 years. COMPARISON: CT lung screening 03/30/2023. TECHNIQUE: Multidetector volumetric CT imaging of the chest is performed on a Siemens SOMATOM Definition scanner without contrast using low dose technique. Additional 2D coronal and sagittal reformatted images and axial 3D maximum intensity projection (MIP) images are generated on the CT workstation. This CT examination was performed using dose optimization techniques as appropriate, variously including the following: *Automated exposure control. *Adjustment of mA and/or kV according to patient size (this includes techniques or standardized protocols for targeted exams where dose is matched to indication/reason for exam; i.e. extremities or head). *Use of iterative reconstruction technique. TOTAL EXAM DLP: 69 mGy-cm. FINDINGS: PULMONARY NODULES: No suspicious pulmonary nodules. Calcified right lower lobe pulmonary granuloma is present. LUNGS: Lungs bilaterally symmetrically expanded. There is mild emphysema and bronchial thickening without bronchiectasis. No effusion or pneumothorax. Central airways patent. MEDIASTINUM: No mediastinal, hilar or axillary adenopathy or free fluid collection. CORONARY ARTERY CALCIFICATION: None visualized on this study. THYROID GLAND: Unremarkable to the extent seen. CARDIOVASCULAR STRUCTURES: The ascending aorta at the level of the main pulmonary arteries 4.2 cm, previously 4.1 cm. Heart size normal. Pericardial effusion. CHEST WALL/AXILLA: Unremarkable. UPPER ABDOMEN: Included portions of the solid organs in the upper abdomen unremarkable on noncontrast imaging. OSSEOUS STRUCTURES: No suspicious focal findings. CT/CT lung screening IMPRESSION: 1. No evidence of pulmonary malignancy. 2. Mild emphysema and bronchial thickening. 3. Mild dilatation of the ascending aorta at 4.2 cm. ASSESSMENT: 1. Lung-RADS Category 1: Negative. There are no nodules or there are definitely benign nodules. N/A. 2. Lung-RADS Category S: Negative. There are no clinically significant or potentially clinically significant findings not related to the lungs requiring urgent additional evaluation. RECOMMENDATION: Continued routine annual low-dose CT lung screening in 1 year is recommended. An order for CT CHEST LOW DOSE CANCER SCREENING ([id number]) can be placed. Electronically signed by: Roman Burleson MD 06/07/2024 11:41 PM [facility]
== END 2024-04-03 08:58 | disposition home or self-care (01) ==
LOC: HO.CT 08:57
PROVIDERS: PCP Nurse Practitioner Family; Visit Provider Physician Assistant Medical
DX: Z12.2 Encounter for screening for malignant neoplasm of respiratory organs (principal); F17.210 Nicotine dependence, cigarettes, uncomplicated
CPT/HCPCS: 71271

== ENCOUNTER 2024-05-02 08:00 | Outpatient (RCR) | payer OTHER, SELFPAY ==
--- NOTE | 2024-04-17 11:08 | MHC.PT.EP ---
[place] Office [place] Office [place] Office [address] [phone] F: [phone] F: [phone] F: [phone] F: [phone] Physical Therapy Plan of Care Date of Evaluation: 04/17/24 Date of Surgery: Diagnosis: This is a 58 yo male presenting to skilled PT with a script for pain in the L shoulder. Assessment: This is a 58 yo male presenting to skilled PT with a script for pain in the L shoulder. Patient reporting ongoing shoulder pain now for about a year now, pain has varied but not improved. 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 He also reports helping his son move a while back and was lifting heaving objects making his pain worse as well. Pain is described as feeling sore, feels like a rubber band that should be connected that is not connected anymore, radiating and painful clicking. Pain is located at the anterior shoulder but can radiate down to the elbow and UT. Pain increases with all movement, ADLs and housework. He tends to compensate with his R arm with things like driving and reports that he has in general stopped using his L shoulder/arm now. 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 He tried wearing a sling, using Aleve and lidocaine for pain relief however did not find improvements with these. He does now endorse numerous other body aches and pains including his neck. He no longer works due to pain and lives a more sedentary lifestyle since retiring. Assessment reveals pain that ranges from up to a 6/10 at the worst. Patient demos decreased L shoulder and cervical ROM, strength of L shoulder and scapular stabilizers, TTP at anterior GHJ joint line, bicep tendon, ACJ and UT and impaired posture with forward head and rounded shoulders. He also demos decreased thoracic movement. Based on functional limitations, impaired QOL and pain tolerance patient is a good candidate for skilled PT 2x/wk for 4wks. Frequency and Duration: The patient will be seen 2x/wk for 4wks Short Term Goals: (In 2 weeks) Demo I with HEP Improve shoulder AROM by at least 50% with all motions Demo proper scapular recruitment with appropriate shoulder strengthening exercises Usp Goals: (in 4 wks) Improve shoulder nonpainful AROM to almost near equal B Demo at least 4+/5 improvement in MMT for shoulder Improve SPADI by at least 10 points Improve overall functional QOL by at least 75% including dressing, washing, ADLs Patient will tolerate sleeping on his shoulder without increase in symptoms throughout the night Treatment Plan: Modalities to reduce pain, spasms and effusion. Manual therapy to restore motion and function. Therapeutic exercise to improve strength and flexibility. Neuromuscular re-education for posture and balance. Therapeutic activities to return to functional activities of daily living. Electronically signed by: Luna Panda PT Please sign and return to therapist. Thank you for your referral.
--- NOTE | 2024-05-31 10:38 | MHC.PT.DC ---
[facility] [place] Office [place] Office [place] Office [address] [facility] [phone] F: [phone] F: [phone] F: [phone] F: [phone] Physical Therapy Discharge Report Diagnosis: This is a 58 yo male presenting to skilled PT with a script for pain in the L shoulder. Date of Surgery: Date of Evaluation: 04/17/24 Date of Discharge: 05/31/24 Treatments to Date: 6 Cancellations to Date: No Shows to Date: Discharge Status: Patient Elected to Stop Recommend MD Follow-up Discharge Summary: Patient came to 6 visits of PT however he selected to stop PT after this due to unrelenting pain. He was instructed to follow up with an MD and continue HEP as tolerated. Electronically signed by: Luna Panda PT Please sign and return to therapist. Thank you for your referral.
--- NOTE | 2024-05-31 10:45 | MHC.PT.DC ---
[facility] [place] Office [place] Office [place] Office [address] [facility] [phone] F: [phone] F: [phone] F: [phone] F: [phone] Physical Therapy Discharge Report Diagnosis: This is a 58 yo male presenting to skilled PT with a script for pain in the L shoulder. Date of Surgery: Date of Evaluation: 04/17/24 Date of Discharge: 05/31/24 Treatments to Date: 6 Cancellations to Date: No Shows to Date: Discharge Status: Patient Elected to Stop Recommend MD Follow-up Discharge Summary: Patient came to 6 visits of PT however he selected to stop PT after this due to unrelenting pain. He was instructed to follow up with an MD and continue HEP as tolerated. Electronically signed by: Luna Panda PT Please sign and return to therapist. Thank you for your referral.
== END 2024-05-31 10:38 | disposition home or self-care (01) ==
LOC: HO.PTCHIC 08:00
PROVIDERS: PCP Nurse Practitioner Family; Visit Provider Nurse Practitioner Family
DX: M25.512 Pain in left shoulder (principal); G89.29 Other chronic pain
CPT/HCPCS: 97014; 97110; 97140; 97162

== ENCOUNTER 2024-05-23 09:37 | Outpatient (AMB) | payer OTHER, SELFPAY ==
--- NOTE | 2024-05-23 07:08 | A.OFFPC_ITS ---
Intake Visit Reasons: MRI - Request from PT Allergies sertraline Allergy (Unknown, Verified 03/05/24 11:23) severe depression Tobacco use date assessed: 03/05/24 Dental Screening Dental Screen Date: 02/22/23 HPI MRI - Request from PT HPI Details Pt c/o ongoing left shoulder pain. He has completed seven sessions of PT which made the pain worse. Pt reports popping and clicking of his shoulder and he feels like it is catching. Pt has tried several medications including aleve and tylenol which have not helped. He reports difficulty sleeping due to the pain. Will order MRI. Denies fever, chills, and dizziness. [facility] Medical History Dyslipidemia Obesity Nicotine dependence, cigarettes, uncomplicated Family history of colonic polyps Surgical History History of colonoscopy History of surgery on arm History of left knee surgery (~2015) Family History Father No problems noted. Mother No problems noted. 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 Current occupational exposures/hazards: No Cognitive needs: No Hearing needs: No Vision needs: No Questionnaire Thrive Questionnaire Date Thrive assessed: 02/27/24 I am a: Patient What is your living situation today?: I have a steady place to live Within the past 12 months, did the food you bought not last and you didn't have the money to get more?: Never true Within the past 12 months, did you worry whether your food would run out before you got money to buy more?: Never true Do you have trouble paying for medicines?: No Do you have trouble getting transportation to medical appointments?: No Do you have trouble paying your heating and electricity bill?: No Do you have trouble taking care of your child, family member or friend?: No Do you have trouble with day-to-day activities such as bathing, preparing meals, shopping, managing finances, etc.?: No Are you currently unemployed and looking for a job?: No Are you interested in more education?: No Please select the resources that you would like help with: None Currently or been in a relationship where the following occur: No concerns reported THRIVE Score: 0 NELSON-7 AMB Questionnaire NELSON-7 Date NELSON - 7 assessed: 12/13/21 Source: Developed by Drs. Zander Jorge, Rayna Cosme, Duane Ortiz and colleagues, with an educational floresita from [employer]. Review of Systems Const Reports as per HPI Physical exam (Primary Care) Tobacco/Smoking Status: Tobacco use Status Tobacco use date assessed 03/05/24 05/23/24 07:12 Patient Tobacco Use Status Current everyday Tobacco 05/23/24 07:12 e-Cigarette/Vaping Use Never Used 05/23/24 07:12 Thrive Assessment: Date of Thrive Assessment Date Thrive assessed 02/27/24 05/23/24 07:12 Currently or been in a relationship where the following occur: No concerns reported Const General: cooperative Orientation/consciousness: patient oriented x3 Neuro General: patient oriented x3 Psych Appearance: grossly normal Mental Status: mental status grossly normal Speech and movement: Clear speech present Affect: normal affect Attitude: cooperative Thought process: Normal thought process present Thought content: Normal thought content present Insight: Good insight present (Psych) Judgement: Good judgement present (Psych) Telehealth Telehealth Telehealth Platform: [facility] Location of provider rendering services: practice address Location of patient: address on file Patient Identification confirmed using: Name, : Yes Telehealth method: video Patient verbally consented to treatment: Yes Patient verbally consented to billing insurance company: Yes Patient informed of any privacy concerns related to visit: Yes Minutes spent on Phone/Video with Pt.: 10 Coding Level of Care Code Tele Est Pt Level 3 (71944) Diagnoses Chronic left shoulder pain M25.512; G89.29 Assessment & Plan Assessment & Plan (1) Chronic left shoulder pain: Code(s): M25.512 - Pain in left shoulder; G89.29 - Other chronic pain Category: Medical Plan: MRI ordered Plan The patient agreed to the use of a medical or surgical instrument maker for this encounter. Scribed for BRITTNEE Hoffman by Kelsea Hahn medical or surgical instrument maker, on 05/23/2024 at 07:10 EST. Orders: Orders MR shoulder LT wo con Today G89.29 - Other chronic pain, M25.512 - Pain in left shoulder
== END 2024-05-23 14:23 | disposition home or self-care (01) ==
LOC: HO.HMCC 09:37
PROVIDERS: PCP Nurse Practitioner Family; Visit Provider Nurse Practitioner Family
DX: M25.512 Pain in left shoulder (principal); G89.29 Other chronic pain

== ENCOUNTER 2024-06-11 07:53 | Outpatient (REF) | payer OTHER, SELFPAY ==
[2024-06-11 11:45] LABS: Albumin Level 4.3 g/dL (3.5-5.0); Alkaline Phosphatase 83 U/L (39-117); Anion Gap 12 (12-20); Aspartate Amino Transferase 42 U/L (5-37); Bilirubin Total 0.5 mg/dL (0.0-1.0); Blood Urea Nitrogen 11 mg/dL (9-16); Calcium 9.6 mg/dL (8.4-10.2); Carbon Dioxide 25 mmol/L (22-29); Chloride 108 mmol/L (96-108); Cholesterol 160 mg/dL (<200); Estimated Glomerular Filt Rate > 60; Glucose Fasting 111 mg/dL (60-99); HDL Cholesterol 33 mg/dL (>40); LDL Cholesterol Calculated 77 mg/dL (<100); Potassium 4.3 mmol/L (3.3-5.1); Sodium 141 mmol/L (135-145); Total Protein 7.5 g/dL (6.5-8.0); Triglycerides 253 mg/dL (<150)
[2024-06-11 12:32] LABS: Alanine Aminotransferase 35 U/L (0-40)
== END 2024-06-11 07:54 | disposition home or self-care (01) ==
LOC: HO.HMGCLDS 07:53
PROVIDERS: PCP Nurse Practitioner Family; Visit Provider Nurse Practitioner Family
DX: E78.5 Hyperlipidemia, unspecified (principal)
CPT/HCPCS: 36415; 80053; 80061

== ENCOUNTER 2024-06-25 07:23 | Outpatient (REF) | payer OTHER, SELFPAY ==
--- NOTE | ~2024-06-25 | MR_ITS ---
EXAMINATION: MR SHOULDER WITHOUT CONTRAST, LEFT CLINICAL INFORMATION: Pain in left shoulder - M25.512. COMPARISON: X-ray left shoulder 03/14/2024. TECHNIQUE: MRI of the shoulder without contrast was performed on a high-field scanner. FINDINGS: ROTATOR CUFF: Supraspinatus: There is a small partial tear involving the anterior leading edge of the supraspinatus tendon which appears just deep to the bursal surface. This measures 3 mm transverse and 7 mm AP. Additional heterogeneity of the overlying tendon may reflect additional partial tearing extending to the bursal surface. Additional scattered heterogeneity throughout the remaining tendon compatible with tendinosis. Muscle is normal. Infraspinatus: Tiny focus of increased signal within the posterior tendon compatible with some minimal interstitial partial tearing but no measurable defect or tendon retraction. Muscle normal. Teres minor normal. Subscapularis: Mild heterogeneity compatible with tendinosis and perhaps minimal interstitial partial tearing of the upper one-third portion. No measurable defect or tendon retraction. Muscle normal. BICEPS: Normal. CORACOACROMIAL ARCH: The undersurface of the acromion is curved with no subacromial spur. Mild-moderate osteoarthritis of the acromioclavicular joint. There is a small amount of increased fluid in the subacromial subdeltoid bursa compatible with bursitis. LABRUM/CAPSULE: There is mild heterogeneity and blunting of the surface of the superior labrum likely reflecting degenerative change or nondisplaced degenerative tearing. Remaining portions of labrum intact. GLENOHUMERAL JOINT/MARROW: Articular cartilage normal. Minimal edema in the anterior aspect of the greater tuberosity, nonspecific. MR/MR shoulder LT wo con IMPRESSION: 1. Small partial tear of the anterior leading edge of the supraspinatus tendon. Additional abnormality of the overlying tendon compatible with tendinosis and perhaps additional partial tearing extending to the bursal surface. 2. Minimal interstitial partial tearing of the infraspinatus and subscapularis without a measurable defect. 3. Mild-moderate osteoarthritis of the acromioclavicular joint. 4. Mild subacromial subdeltoid bursitis. 5. Degenerative change versus nondisplaced degenerative tearing of the superior labrum. 6. Minimal edema in the anterior greater tuberosity compatible with bone contusion or perhaps reactive, related to the aforementioned suspected partial tendon tear. Electronically signed by: Jeremie Anaya MD 06/25/2024 03:35 PM EST RP
== END 2024-06-25 07:24 | disposition home or self-care (01) ==
LOC: HO.MRI 07:23
PROVIDERS: PCP Nurse Practitioner Family; Visit Provider Nurse Practitioner Family
DX: M25.512 Pain in left shoulder (principal); G89.29 Other chronic pain
CPT/HCPCS: 73221

== ENCOUNTER 2024-06-27 07:32 | Outpatient (REF) | payer OTHER, SELFPAY | END 2024-06-27 07:33 | disposition home or self-care (01) | LOC: HO.US 07:32 | PROVIDERS: PCP Nurse Practitioner Family; Visit Provider Nurse Practitioner Family | DX: R74.8 Abnormal levels of other serum enzymes (principal); R74.01 Elevation of levels of liver transaminase levels | CPT/HCPCS: 76700 ==

== ENCOUNTER 2024-07-30 07:56 | Outpatient (AMB) | payer OTHER, SELFPAY ==
--- NOTE | 2024-07-30 08:19 | MHC.OFFVIS ---
Vital Signs 07/30/24 08:26 Height 5 ft 6 in Weight 225 lb BMI 36.3 Handedness Right Intake Visit Reasons: New prob - left shoulder pain, MRI 06/25/24 Intake Note: Tiburcio is a 59 year old right hand dominant male who presents today for a evaluation of his left shoulder pain. No hx of injury. MRI done on 06/25/24. Patient reports he hear popping and clicking which feels like it is catching. Patient mentions having ongoing pain for about a year and a half. He states that his pain starts on the anterior aspect of the shoulder and radiates up to his neck. Patient notices that his ROM is limited. Pain is worse when doing overhead work and reaching his back. Allergies sertraline Allergy (Unknown, Verified 07/30/24 08:24) severe depression HPI HPI New prob - left shoulder pain, MRI 06/25/24: Details: Mr. Tyson Is a 59-year-old [id number]-hcujwgtm male who presents the office today for left shoulder pain. He reports the shoulder pain has been there for over 1 year. He has done about 6-7 physical therapy sessions before an MRI was ordered. He is looking for MRI results only office today. He has not tried any cortisone injections to this date. He reports that he feels a lot of snapping and popping sensations. [facility] Medical History (Updated 07/30/24 @ 08:41 by Yolande Mireles PA-C) Fatty liver Mild ascending aorta dilatation Dyslipidemia Obesity Nicotine dependence, cigarettes, uncomplicated Family history of colonic polyps Surgical History History of colonoscopy History of surgery on arm History of left knee surgery (~2015) Family History Father No problems noted. Mother No problems noted. 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 Current occupational exposures/hazards: No Cognitive needs: No Hearing needs: No Vision needs: No Review of Systems Const All systems reviewed & are unremarkable except as noted in HPI and below Physical Exam Vital Signs: BMI result Body Mass Index 36.3 Const General: cooperative, healthy appearing and no acute distress Resp Effort & Inspection: normal respiratory effort and able to speak in complete sentences Cardio Rate: regular rate Peripheral pulses: Peripheral pulses 2+ throughout Skin Lesions: no lesions Rashes: no rashes Extrem Other: Right shoulder: Forward flexion lacking about 20 degrees. Abduction to 90 degrees. Pain with cross-body reach. 4/5 strength with empty can. Negative drop arm. NVI. Office Procedures AMB Joint Injection/Aspiration Joint Injection/Aspiration Primary Site: left shoulder Prep: site was prepped using aseptic technique, ethochloride spray was applied and injection warnings given Injected: 80 mg of, DepoMedrol, with 8 mL of (2% plain lidocaine) and in the subcromial space Approach Used: posterolateral Procedure: The patient tolerated the procedure well, but had some pain with the injection and there was some relief with the local anesthesia Coding 20579 - Large joint Procedure code (CPT) selection complete Quality Reporting (2019) Adult ([facility] ) Smoking risk assessment performed?: Yes Patient Tobacco Use Status: Current everyday Tobacco user Assessment & Plan Assessment & Plan (1) Painful arc syndrome of left shoulder: Code(s): M75.102 - Unspecified rotator cuff tear or rupture of left shoulder, not specified as traumatic Category: Medical (2) Rotator cuff tendinitis: Code(s): M75.80 - Other shoulder lesions, unspecified shoulder Category: Medical Plan: . (3) Injury of left rotator cuff: Code(s): S46.002A - Unspecified injury of muscle(s) and tendon(s) of the rotator cuff of left shoulder, initial encounter Category: Medical Plan Mr. Tyson Is a 59-year-old hgjuw-vhrh-loatiaha male who presents the office today for left shoulder pain. He reports the shoulder pain has been there for over 1 year. He has done about 6-7 physical therapy sessions before an MRI was ordered. He is looking for MRI results only office today. He has not tried any cortisone injections to this date. He reports that he feels a lot of snapping and popping sensations. The patient was offered a cortisone injection in the left with 80 mg of DepoMedrol. The patient was explained the risks, benefits, and alternatives to receiving this injection. After receiving consent for the injection, the patient had the procedure done while in the office today. The patient tolerated the procedure well with no complications. I also discussed the with the patient the role of continuing physical therapy. Patient will continue home exercise program as he has the exercise handouts as well as the exercise bands at home. Follow-up will be p.r.n., or sooner if needed IMPRESSION: 1. Small partial tear of the anterior leading edge of the supraspinatus tendon. Additional abnormality of the overlying tendon compatible with tendinosis and perhaps additional partial tearing extending to the bursal surface. 2. Minimal interstitial partial tearing of the infraspinatus and subscapularis without a measurable defect. 3. Mild-moderate osteoarthritis of the acromioclavicular joint. 4. Mild subacromial subdeltoid bursitis. 5. Degenerative change versus nondisplaced degenerative tearing of the superior labrum. 6. Minimal edema in the anterior greater tuberosity compatible with bone contusion or perhaps reactive, related to the aforementioned suspected partial tendon tear. Left shoulder MRI obtained on 06/25/2024 IMPRESSION: 1. Small partial tear of the anterior leading edge of the supraspinatus tendon. Additional abnormality of the overlying tendon compatible with tendinosis and perhaps additional partial tearing extending to the bursal surface. 2. Minimal interstitial partial tearing of the infraspinatus and subscapularis without a measurable defect. 3. Mild-moderate osteoarthritis of the acromioclavicular joint. 4. Mild subacromial subdeltoid bursitis. 5. Degenerative change versus nondisplaced degenerative tearing of the superior labrum. 6. Minimal edema in the anterior greater tuberosity compatible with bone contusion or perhaps reactive, related to the aforementioned suspected partial tendon tear Coding Level of Care Code Est Pt Level 4 (14594) Diagnoses Painful arc syndrome of left shoulder M75.102 Rotator cuff tendinitis M75.80 Injury of left rotator cuff S46.002A CPT Codes Coding - 87846 Large joint: 67463 - Large joint ([id number])
[2024-07-30 08:26] VITALS: BMI 36.3
== END 2024-07-30 08:49 | disposition home or self-care (01) ==
PROVIDERS: PCP Nurse Practitioner Family; Visit Provider Physician Assistant
DX: M75.102 Unspecified rotator cuff tear or rupture of left shoulder, not specified as traumatic (principal); M75.82 Other shoulder lesions, left shoulder; S46.002A Unspecified injury of muscle(s) and tendon(s) of the rotator cuff of left shoulder, initial encounter
CPT/HCPCS: 20610; 99214

== ENCOUNTER → 2024-07-30 07:56 | Outpatient (BNVA) | payer OTHER, SELFPAY | PROVIDERS: PCP Nurse Practitioner Family; Visit Provider Physician Assistant | DX: M75.102 Unspecified rotator cuff tear or rupture of left shoulder, not specified as traumatic (principal); M75.82 Other shoulder lesions, left shoulder; S46.002A Unspecified injury of muscle(s) and tendon(s) of the rotator cuff of left shoulder, initial encounter; X58.XXXA Exposure to other specified factors, initial encounter; Y93.9 Activity, unspecified; Y92.9 Unspecified place or not applicable; Y99.9 Unspecified external cause status | CPT/HCPCS: 20610; 99212; J1010; J2003 ==

== ENCOUNTER 2024-08-05 08:19 | Outpatient (REF) | payer OTHER, SELFPAY ==
[2024-08-05 11:15] LABS: HBc Num1 0.09 S/CO (0.00-0.79); HBsAGNum1 0.37 S/CO (0.00-0.99); Hepatitis A Antibody IgM 0.15 Index (0-0.79); Hepatitis B Core Antibody Nonreactive (Nonreactive); Hepatitis B Surface Antigen Negative (Negative); ~HepC Num1 0.09 S/CO (0.00-0.79); ~Hepatitis A Antibody IgM Nonreactive (Nonreactive); ~Hepatitis B Surface Antibody NONREACTIVE (Nonreactive); ~Hepatitis C Antibody Nonreactive (Nonreactive)
== END 2024-08-05 08:20 | disposition home or self-care (01) ==
LOC: HO.HMGCLDS 08:19
PROVIDERS: PCP Nurse Practitioner Family; Visit Provider Nurse Practitioner Family
DX: R74.8 Abnormal levels of other serum enzymes (principal)
CPT/HCPCS: 36415; 86704; 86706; 86709; 86803; 87340

== ENCOUNTER 2024-09-09 11:20 | Outpatient (AMB) | payer OTHER, SELFPAY ==
[2024-09-09 11:24] VITALS: BP 112/70; PULSE 78; TEMP 36.6; O2SAT 98; BMI 37.1
--- NOTE | 2024-09-09 11:24 | MHC.PC.OV ---
Vital Signs 09/09/24 11:24 Height 5 ft 6 in Weight 230 lb BMI 37.1 BP 112/70 Blood Pressure Location Lt brachial Position Sitting Pulse 78 Pulse Source Pulse Oximeter Temp 97.8 F Temp Source Oral Pulse Oximetry (%) 98 Oxygen Delivery Method Room Air Intake Visit Reasons: 6M F/U Intake Note: pt is here for 6 mon f/up Lockstitch Front Edge Tape Sewer Required: No Accompanied by: Self / Same As Patient Allergies sertraline Allergy (Unknown, Verified 09/09/24 11:24) severe depression Medication List - Last Reconciled 09/09/24 by ABIEL Phillips No Known Home Meds Tobacco use date assessed: 09/09/24 Dental Screening Dental Screen Date: 09/09/24 Did you have a dental visit in the last 12 months?: Yes Did you have a dental problem in the last 6 months where you did not have access to dental care?: No Was dental information given to patient?: Patient has dentist HPI 6M F/U HPI Details Chief Complaint The patient presents with right breast swelling and tenderness for the last week. History of Present Illness The patient is a 59-year-old male presenting for a routine physical examination, chiefly due to right breast swelling and tenderness of one week's duration. The patient denies any accompanying systemic symptoms suggestive of infection or malignancy such as fever, skin changes, or discharge. The patient has a history of obesity and smoking, for which he undergoes annual low-dose CAT scans. His last colonoscopy was supposed to occur last fall, but he canceled the appointment. He reports no gastrointestinal symptoms and declines a digital rectal examination, preferring PSA testing for prostate evaluation. Social History - Cigarette smoking, managed with yearly low-dose CAT scans. - Declines digital rectal exams for prostate evaluation. Health Maintenance - Annual low-dose CAT scans due to smoking history. - PSA testing planned instead of digital rectal exam, refuses NICOLETTE. - Colonoscopy scheduling discussed as it was overdue since last fall. Review of Systems - Respiratory: Denies chest pain or shortness of breath. - Gastrointestinal: Denies nausea, vomiting, constipation, diarrhea, or blood in stool. - Psychiatric: Denies anxiety or depression. - Genitourinary: Denies urinary issues. Physical Exam General: Cooperative, healthy appearing, comfortable, no acute distress and well developed, obese Orientation: Patient oriented x3 Limitations: No limitations Head: Normal to inspection Ears: Hearing grossly normal bilaterally Nose: Normal external nose present Face and sinus: Normal facial exam Eyes: Appearance normal, both eyes and all related structures Neck: Normal visual inspection and Yes full ROM Respiratory: Normal respiratory effort and able to speak in complete sentences. Clear to auscultation bilaterally Cardiovascular: Regular rate and rhythm. Normal S1 and S2 GI: Normal to inspection. Soft to palpation and nontender Skin: No rashes or lesions noted Neuro: Patient oriented x3 Extremities: Normal to inspection Results Plan A PSA test will be conducted due to the patient's preference against a digital rectal exam. The management of obesity and smoking includes continuing annual low-dose CAT scans. The right breast swelling may require further investigation, potentially imaging, if unresolved. A referral will be made for a new colonoscopy appointment. Consideration will be given to addressing lifestyle modifications, particularly regarding smoking cessation. Discussion Notes I discussed the examination findings and management strategies with the patient. I explained the importance of completing a colonoscopy for age-appropriate screening and agreed on resubmitting a referral for this. We also explored the necessity of monitoring prostate health, for which the patient consented to having a PSA test over a digital rectal exam. We talked about potential causes of breast tenderness and possible next steps if the symptoms persist. I emphasized lifestyle modifications to manage obesity and smoking, alongside ongoing health maintenance screenings. Patient Instructions - Plan for the PSA test. - Reschedule and complete your colonoscopy. - Monitor breast symptoms, and report if they worsen or do not resolve. - Continue annual low-dose CAT scans. - Consider lifestyle changes to address obesity and smoking. [facility] Medical History Fatty liver Mild ascending aorta dilatation Dyslipidemia Obesity Nicotine dependence, cigarettes, uncomplicated Family history of colonic polyps Surgical History History of colonoscopy History of surgery on arm History of left knee surgery (~2015) Family History Father No problems noted. Mother No problems noted. 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 1. Little interest or pleasure in doing things: not at all 2. Feeling down, depressed, or hopeless: not at all 3. Trouble falling or staying asleep, or sleeping too much: not at all 4. Feeling tired or having little energy: not at all 5. Poor appetite or overeating: not at all 6. Feeling bad about yourself - or that you are a failure or have let yourself or your family down: not at all 7. Trouble concentrating on things, such as reading the newspaper or watching television: not at all 8. Moving or speaking so slowly that other people could have noticed. Or the opposite - being so fidgety or restless that you have been moving around a lot more than usual: not at all 9. Thoughts that you would be better off or of hurting yourself in some way: not at all Total score: 0 Depression Screening Interpretation: Negative Depression Screening Done: Yes 91671 - PHQ-9 Billing: Yes Source: Developed by Drs. Zander Jorge, Rayna Cosme, Duane Ortiz and colleagues, with an educational floresita from [employer]. Thrive Questionnaire Date Thrive assessed: 09/09/24 I am a: Patient What is your living situation today?: I have a steady place to live Within the past 12 months, did the food you bought not last and you didn't have the money to get more?: Never true Within the past 12 months, did you worry whether your food would run out before you got money to buy more?: Never true Do you have trouble paying for medicines?: No Do you have trouble getting transportation to medical appointments?: No Do you have trouble paying your heating and electricity bill?: No Do you have trouble taking care of your child, family member or friend?: No Do you have trouble with day-to-day activities such as bathing, preparing meals, shopping, managing finances, etc.?: No Are you currently unemployed and looking for a job?: No Are you interested in more education?: No Please select the resources that you would like help with: None Currently or been in a relationship where the following occur: No concerns reported THRIVE Score: 0 AUDIT C Alcohol Use Questionnaire (AUDIT-C) 1. How often do you have a drink containing alcohol?: Never 3. How often do you have six or more drinks on one occasion?: Never Total Score: 0 Score Reviewed/Action Taken: Yes NELSON-7 AMB Questionnaire NELSON-7 Date NELSON - 7 assessed: 09/09/24 Feeling nervous, anxious, or on edge: 0 = Not at all Not being able to stop or control worryin = Not at all Worrying too much about different things: 0 = Not at all Trouble relaxin = Not at all Being so restless that it is hard to sit still: 0 = Not at all Becoming easily annoyed or irritable: 0 = Not at all Feeling afraid as if something awful might happen: 0 = Not at all Total NELSON-7 score (0-4 normal; 5-9 mild; 10-14 moderate; 15-21 severe): 0 Source: Developed by Drs. Zander Jorge, Rayna Cosme, Duane Ortiz and colleagues, with an educational floresita from [employer]. NELSON-7 Assessment Billing NELSON-7 Assessment Tool: NELSON-7 Assessment 27066 Physical exam (Primary Care) Vital Signs: Last Vital Signs Temp 97.8 F 09/09/24 11:24 Pulse 78 09/09/24 11:24 BP 112/70 09/09/24 11:24 Pulse Ox 98 09/09/24 11:24 Oxygen Delivery Method Room Air 09/09/24 11:24 BMI result Body Mass Index 37.1 Tobacco/Smoking Status: Tobacco use Status Tobacco use date assessed 09/09/24 09/09/24 11:25 Patient Tobacco Use Status Current everyday Tobacco 09/09/24 11:25 e-Cigarette/Vaping Use Never Used 09/09/24 11:25 PHQ-9: PHQ-9 Score PHQ-9: Total score 0 09/09/24 11:29 Depression Screening Interpretation: Negative Thrive Assessment: Date of Thrive Assessment Date Thrive assessed 09/09/24 09/09/24 11:25 Currently or been in a relationship where the following occur: No concerns reported Coding Level of Care Code Est Pt Prev Care 40-64y(90303) Diagnoses Dyslipidemia E78.5 Mild ascending aorta dilatation I77.810 Screening PSA (prostate specific antigen) Z12.5 Additional Codes NELSON-7 Assessment Billing - NELSON-7 Assessment Tool: NELSON-7 Assessment 82126 ([id number]) PHQ-9 - 61934 - PHQ-9 Billing: Yes ([id number]) Assessment & Plan Assessment & Plan (1) Dyslipidemia: Code(s): E78.5 - Hyperlipidemia, unspecified Category: Medical Plan: will cont to monitor (2) Mild ascending aorta dilatation: Comment: (4.2 cm - 03/[address]) Code(s): I77.810 - Thoracic aortic ectasia Category: Medical (3) Screening PSA (prostate specific antigen): Code(s): Z12.5 - Encounter for screening for malignant neoplasm of prostate Category: Medical Plan . Orders: Orders Complete Blood Count Auto Diff Today E78.5 - Hyperlipidemia, unspecified TSH reflex Free T4 Today E78.5 - Hyperlipidemia, unspecified Comprehensive Shedd. Panel Fast Today E78.5 - Hyperlipidemia, unspecified UA CC w/rflx Micro + Cult Today E78.5 - Hyperlipidemia, unspecified Lipid Panel Today E78.5 - Hyperlipidemia, unspecified CA echo transthoracic complete 7 Months I77.810 - Thoracic aortic ectasia Prostate Specific Antigen Scr Today Z12.5 - Encounter for screening for malignant neoplasm of prostate
== END 2024-09-09 13:00 | disposition home or self-care (01) ==
PROVIDERS: PCP Nurse Practitioner Family; Visit Provider Nurse Practitioner Family
DX: E78.5 Hyperlipidemia, unspecified (principal); I77.810 Thoracic aortic ectasia; Z12.5 Encounter for screening for malignant neoplasm of prostate

== ENCOUNTER → 2024-09-09 11:20 | Outpatient (BNVA) | payer OTHER, SELFPAY | PROVIDERS: PCP Nurse Practitioner Family; Visit Provider Nurse Practitioner Family | DX: E78.5 Hyperlipidemia, unspecified (principal); I77.810 Thoracic aortic ectasia | CPT/HCPCS: 96127; 99212 ==

== ENCOUNTER 2025-03-11 13:36 | Outpatient (AMB) | payer OTHER, SELFPAY ==
[2025-03-11 13:43] VITALS: BP 130/84; PULSE 72; RESP 16; TEMP 37; O2SAT 100; BMI 37.1
--- NOTE | 2025-03-11 13:43 | MHC.PC.OV ---
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 Accompanied by: Self / Same As Patient Allergies sertraline Allergy (Unknown, Verified 03/11/25 13:45) severe depression Medication List - Last Reconciled 03/11/[facility] esomeprazole magnesium 40 mg PO DAILY Tobacco use date assessed: 03/11/25 Dental Screening Dental Screen Date: 03/11/25 Did you have a dental visit in the last 12 months?: No Did you have a dental problem in the last 6 months where you did not have access to dental care?: No Was dental information given to patient?: No HPI PE HPI Details History of Present Illness The patient is a 59-year-old male presenting for a physical examination. He reports a history of tobacco use and undergoes low-dose CT scans for lung cancer screening. He denies experiencing chest pain or increased dyspnea. The patient experiences abdominal cramping, particularly in the morning upon waking, which has persisted for about a year. The cramping is not associated with diarrhea or constipation and is not linked to food intake, although he feels hungry soon after eating. An ultrasound previously indicated hepatic steatosis, and a CT scan is planned for further evaluation. He is due for a colon cancer screening, which he was referred last year but was not completed due to a some issue??? The patient is obese and reports urinary dribbling but declines a digital rectal examination today. He will undergo a PSA test and is aware to contact the office if symptoms worsen. A possible cystic lesion was noted on the medial aspect of the right testicle, and an ultrasound is planned for further evaluation. Health Maintenance - Lung cancer screening with low-dose CT scan due to tobacco use - Colon cancer screening referral to be repeated Social History - Tobacco use: Patient is a smoker and undergoes regular low-dose CT scans for lung cancer screening. Review of Systems - Respiratory: Denies chest pain, denies increased dyspnea - Gastrointestinal: Reports abdominal cramping, denies ongoing diarrhea or constipation, or blood in stool - Genitourinary: Reports urinary dribbling - Denies any si or hi, fevers, chills Physical Exam General: Cooperative, healthy appearing, comfortable, no acute distress and well developed Orientation: Patient oriented x3 Limitations: No limitations Head: Normal to inspection Ears: Hearing grossly normal bilaterally Nose: Normal external nose present Face and sinus: Normal facial exam Eyes: Appearance normal, both eyes and all related structures Neck: Normal visual inspection and Yes full ROM Respiratory: Normal respiratory effort and able to speak in complete sentences. Clear to auscultation bilaterally Cardiovascular: Regular rate and rhythm. Normal S1 and S2. No carotid bruits noted GI: Normal to inspection. Soft to palpation and slight tenderness (RUQ mostly) : Right testicle medial aspect inferior aspect with question cystic lesion and no hernias appreciated Skin: No rashes or lesions noted Neuro: Patient oriented x3 Extremities: Normal to inspection. No edema noted Results - Imaging: Previous ultrasound showed hepatic steatosis 1. Tobacco Use Disorder The patient is advised to continue regular low-dose CT scans for lung cancer screening due to his smoking history. 2. Abdominal Cramping The patient reports abdominal cramping, particularly in the morning, which has persisted for about a year. Further evaluation may be needed if symptoms persist or worsen. pantoprazole was stopped, will send esomeprazole 3. Hepatic Steatosis A CT scan is planned to further evaluate the hepatic steatosis noted on previous ultrasound. 4. Obesity The patient is advised to consider lifestyle modifications to address obesity. 5. Urinary Dribbling The patient reports urinary dribbling but declines a digital rectal examination today. He will undergo a PSA test and is aware to contact the physician if symptoms worsen. 6. Possible Testicular Cyst An ultrasound is planned to evaluate the possible cystic lesion on the medial aspect of the right testicle. 7. Preventative Care: Colon Cancer Screening A referral for colon cancer screening will be repeated as the previous referral was not completed. Discussion Notes During the visit, I discussed the importance of continuing low-dose CT scans for lung cancer screening due to the patient's smoking history. We also talked about the need for a CT scan to further evaluate abd cramping and hepatic steatosis and the importance of repeating the colon cancer screening referral. The patient was informed about the planned ultrasound for the possible testicular cyst and the PSA test for urinary dribbling. Patient Instructions - Continue with regular low-dose CT scans for lung cancer screening. - Schedule and complete the CT scan for hepatic steatosis evaluation. - Follow up on the colon cancer screening referral, vikraming. - Undergo the ultrasound for the testicular cyst evaluation. - Complete the PSA test and contact the physician if urinary symptoms worsen. [facility] Medical History Fatty liver Mild ascending aorta dilatation Dyslipidemia Obesity Nicotine dependence, cigarettes, uncomplicated Family history of colonic polyps Surgical History History of colonoscopy History of surgery on arm History of left knee surgery (~2016) Family History Father No problems noted. Mother No problems noted. 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 1. Little interest or pleasure in doing things: not at all 2. Feeling down, depressed, or hopeless: not at all 3. Trouble falling or staying asleep, or sleeping too much: not at all 4. Feeling tired or having little energy: not at all 5. Poor appetite or overeating: not at all 6. Feeling bad about yourself - or that you are a failure or have let yourself or your family down: not at all 7. Trouble concentrating on things, such as reading the newspaper or watching television: not at all 8. Moving or speaking so slowly that other people could have noticed. Or the opposite - being so fidgety or restless that you have been moving around a lot more than usual: not at all 9. Thoughts that you would be better off or of hurting yourself in some way: not at all Total score: 0 Depression Screening Interpretation: Negative Depression Screening Done: Yes 97439 - PHQ-9 Billing: Yes Source: Developed by Drs. Zander Jorge, Rayna Cosme, Duane Ortiz and colleagues, with an educational floresita from [employer]. Thrive Questionnaire Date Thrive assessed: 09/02/24 I am a: Patient What is your living situation today?: I have a steady place to live Within the past 12 months, did the food you bought not last and you didn't have the money to get more?: Never true Within the past 12 months, did you worry whether your food would run out before you got money to buy more?: Never true Do you have trouble paying for medicines?: No Do you have trouble getting transportation to medical appointments?: No Do you have trouble paying your heating and electricity bill?: No Do you have trouble taking care of your child, family member or friend?: No Do you have trouble with day-to-day activities such as bathing, preparing meals, shopping, managing finances, etc.?: No Are you currently unemployed and looking for a job?: No Are you interested in more education?: No Please select the resources that you would like help with: None Currently or been in a relationship where the following occur: No concerns reported THRIVE Score: 0 AUDIT C Alcohol Use Questionnaire (AUDIT-C) 2. How many drinks containing alcohol do you have on a typical day when you are drinking?: 1 or 2 Total Score: 0 NELSON-7 AMB Questionnaire NELSON-7 Date NELSON - 7 assessed: 03/11/25 Feeling nervous, anxious, or on edge: 0 = Not at all Not being able to stop or control worryin = Not at all Worrying too much about different things: 0 = Not at all Trouble relaxin = Not at all Being so restless that it is hard to sit still: 0 = Not at all Becoming easily annoyed or irritable: 0 = Not at all Feeling afraid as if something awful might happen: 0 = Not at all Total NELSON-7 score (0-4 normal; 5-9 mild; 10-14 moderate; 15-21 severe): 0 Source: Developed by Rayna Jimenez Ba, Duane Ortiz and colleagues, with an educational floresita from [employer]. NELSON-7 Assessment Billing NELSON-7 Assessment Tool: NELSON-7 Assessment 42234 Physical exam (Primary Care) Vital Signs: Last Vital Signs Temp 98.6 F 03/11/25 13:43 Pulse 72 03/11/25 13:43 Resp 16 03/11/25 13:43 BP 130/84 03/11/25 13:43 Pulse Ox 100 03/11/25 13:43 Oxygen Delivery Method Room Air 03/11/25 13:43 BMI result Body Mass Index 37.1 Tobacco/Smoking Status: Tobacco use Status Tobacco use date assessed 03/11/25 03/11/25 13:49 Patient Tobacco Use Status Current everyday Tobacco 03/11/25 13:49 e-Cigarette/Vaping Use Never Used 03/11/25 13:49 PHQ-9: PHQ-9 Score PHQ-9: Total score 0 03/11/25 13:49 Depression Screening Interpretation: Negative Thrive Assessment: Date of Thrive Assessment Date Thrive assessed 09/02/24 03/11/25 13:49 Currently or been in a relationship where the following occur: No concerns reported Coding Level of Care Code Est Pt Level 3 (35774) Est Pt Prev Care 40-64y(31393) Diagnoses Family history of colonic polyps Z83.71 Abdominal cramping R10.9 Mass of right testicle N50.89 Additional Codes NELSON-7 Assessment Billing - NELSON-7 Assessment Tool: NELSON-7 Assessment 53143 ([id number]) PHQ-9 - 93870 - PHQ-9 Billing: Yes ([id number]) Assessment & Plan Assessment & Plan (1) Family history of colonic polyps: Comment: (+fam hx polyps in sister. he had normal scope 2019 - plan is 5yr repeat) Code(s): Z83.71 - Family history of colonic polyps Category: Medical (2) Abdominal cramping: Code(s): R10.9 - Unspecified abdominal pain Category: Medical (3) Mass of right testicle: Code(s): N50.89 - Other specified disorders of the male genital organs Category: Medical Plan . Orders: Orders CT abdomen pelvis w IV con Today R10.9 - Unspecified abdominal pain US scrotum Today N50.89 - Other specified disorders of the male genital organs Referrals Gastroenterology Referral Z83.71 - Family history of colonic polyps Medications: New esomeprazole magnesium 40 mg PO DAILY 90 caps 0RF Discontinued pantoprazole Discontinued Reason: Doctor's Order 20 mg PO DAILY 30 days 30 tabs 2RF
== END 2025-03-11 14:13 | disposition home or self-care (01) ==
LOC: HO.HMCC 13:37
PROVIDERS: PCP Nurse Practitioner Family; Visit Provider Nurse Practitioner Family
DX: Z00.00 Encounter for general adult medical examination without abnormal findings (principal); R10.9 Unspecified abdominal pain; N50.89 Other specified disorders of the male genital organs; Z83.719 Family history of colon polyps, unspecified

== ENCOUNTER → 2025-03-11 13:36 | Outpatient (BNVA) | payer OTHER, SELFPAY | PROVIDERS: PCP Nurse Practitioner Family; Visit Provider Nurse Practitioner Family | DX: Z00.00 Encounter for general adult medical examination without abnormal findings (principal); R10.9 Unspecified abdominal pain; N39.43 Post-void dribbling; E66.9 Obesity, unspecified; K76.0 Fatty (change of) liver, not elsewhere classified; N50.89 Other specified disorders of the male genital organs; Z68.37 Body mass index [BMI] 37.0-37.9, adult; Z83.719 Family history of colon polyps, unspecified | CPT/HCPCS: 96127; 99212; 99396 ==

== ENCOUNTER 2025-03-12 06:57 | Outpatient (REF) | payer OTHER, SELFPAY ==
[2025-03-12 10:09] LABS: MANUAL DIFF FLAG NO
[2025-03-12 10:14] LABS: Hematocrit 45.3 % (42.0-52.0); Hemoglobin 15.5 g/dl (14.0-18.0); Imm Gran Abs Auto 0.01 X10*3/uL (0.00-0.03); Imm Gran Pct Auto 0.2 % (0.0-0.4); Lymphocytes Absolute Auto 2.0 X10*3/uL (1.2-4.9); Mean Corpuscular HGB Conc 34.2 g/dl (31.0-36.0); Mean Corpuscular Hemoglobin 31.2 pg (27.0-33.0); Mean Corpuscular Volume 91.1 fL (80.0-98.0); NRBC Abs Auto 0.000 X10*3/uL (0.0-0.012); NRBC Pct Auto 0.0 /100WBC (0.0-0.2); Platelet Count 167 X10*3/uL (160-400); Red Blood Count 4.97 X10*6/uL (4.60-5.80); White Blood Count 6.5 X10*3/uL (4.8-10.8)
[2025-03-12 10:26] LABS: Appearance Urine Turbid; Glucose Urine UA Negative (Negative); PH 6.0 (5.0-9.0); Specific Gravity - Urine 1.025 (1.005-1.025); UMIC TRIGGER UACC YES
[2025-03-12 11:08] LABS: Alanine Aminotransferase 19 U/L (0-40); Albumin Level 4.3 g/dL (3.5-5.0); Alkaline Phosphatase 71 U/L (39-117); Anion Gap 10 (12-20); Aspartate Amino Transferase 23 U/L (5-37); Blood Urea Nitrogen 12 mg/dL (9-16); Calcium 8.8 mg/dL (8.4-10.2); Carbon Dioxide 26 mmol/L (22-29); Chloride 108 mmol/L (96-108); Cholesterol 244 mg/dL (<200); Estimated Glomerular Filt Rate > 60; HDL Cholesterol 32 mg/dL (>40); Potassium 4.1 mmol/L (3.3-5.1); Sodium 140 mmol/L (135-145); Total Protein 7.4 g/dL (6.5-8.0); Triglycerides 212 mg/dL (<150)
== END 2025-03-12 06:58 | disposition home or self-care (01) ==
LOC: HO.HMGCLDS 06:57
PROVIDERS: PCP Nurse Practitioner Family; Visit Provider Nurse Practitioner Family
DX: Z12.5 Encounter for screening for malignant neoplasm of prostate (principal); E78.5 Hyperlipidemia, unspecified; R31.29 Other microscopic hematuria
CPT/HCPCS: 36415; 80053; 80061; 81001; 84153; 84443; 85025

== ENCOUNTER 2025-04-08 08:49 | Outpatient (REF) | payer OTHER, SELFPAY ==
--- NOTE | ~2025-04-08 | US_ITS ---
CLINICAL HISTORY: N50.89 - Other specified disorders of the male genital organs US scrotum with Doppler Comparison: None provided Static images obtained of scrotum and both testes. Color doppler and spectral wave form analysis performed. Findings: Right testicle normal size and echotexture, 4.4 x 2.1 x 4.5 cm. Left testicle normal size and echotexture, 4.0 x 2.3 x 3.0 cm. Normal color flow and spectral tracing bilaterally. No significant epididymal abnormalities. Large bilateral scrotal hydroceles. Internal debris noted bilaterally. Impression: Large bilateral hydroceles with internal debris This document has been electronically signed by: Rod Mora MD on 04/08/2025 20:34:50
== END 2025-04-08 08:50 | disposition home or self-care (01) ==
LOC: HO.HMGCX 08:49
PROVIDERS: PCP Nurse Practitioner Family; Visit Provider Nurse Practitioner Family
DX: N50.89 Other specified disorders of the male genital organs (principal)
CPT/HCPCS: 76870

== ENCOUNTER → 2025-04-08 08:52 | Outpatient (BNV) | payer OTHER, SELFPAY | PROVIDERS: PCP Nurse Practitioner Family; Visit Provider Radiology Diagnostic Radiology | DX: N50.89 Other specified disorders of the male genital organs (principal) | CPT/HCPCS: 76870 ==

== ENCOUNTER → 2025-04-11 07:45 | Outpatient (REF) | payer OTHER, SELFPAY ==
--- NOTE | 2025-04-11 07:52 | CA_ITS ---
Transthoracic Echocardiogram Patient (Last, First, Middle): Tiburcio Tyson A Gender: M Date of : 1965 Age: 59 Procedure Date: 04/11/2025 Procedure Type: Transthoracic Echocardiogram Location: OP Height: 167. cm Weight: 102.06 kg BSA: 2.10 m2 Heart Rate: 57 bpm BP: 120 / 75 mmHg Steel Analyst: BRET Referring MD: Gopal Cornelius [facility]- Symptoms: I77.810 - Thoracic aortic ectasia Study Quality: Adequate ECG Rhythm: Bradycardia Conclusions: - The left ventricular systolic function is normal. The calculated ejection fraction is 60% by biplane method. - No obvious valvular pathology seen on this study. - There is mild dilatation of the ascending aorta measuring 3.80 cm. Findings Left Ventricle Normal left ventricular cavity size. There is normal left ventricular wall thickness. The left ventricular systolic function is normal. The calculated ejection fraction is 60% by biplane method. There is no evidence of regional wall motion abnormalities. Diastolic function is normal for age. Right Ventricle Mildly increased right ventricular cavity size. There is low normal right ventricular systolic function. Atria Both atria are normal in size. Aortic Valve There is a normal trileaflet aortic valve. There is mild calcification of the aortic valve. There is no aortic valve stenosis. There is no aortic valve regurgitation. Mitral Valve The mitral valve appears normal. There is no mitral valve regurgitation. There is no mitral valve stenosis. Pulmonic Valve The pulmonic valve is likely normal. Tricuspid Valve There is mild tricuspid valve regurgitation. There is no evidence of pulmonary hypertension. Great Vessels There is mild dilatation of the ascending aorta measuring 3.80 cm. Venous The inferior vena cava is normal in size and collapses greater than 50% with inspiration. Pericardium/Pleural There is no evidence of pericardial effusion. Prior Study Comparison No prior study available for comparison. Recommendations, Care & Conclusions No obvious valvular pathology seen on this study. Measurements 2D Linear Measurements IVSd: 0.81 0.6-0.9/0.6-1.0 cm LVIDd: 4.88 3.9-5.3/4.2-5.9 cm LVIDd Index: 2.32 2.4-3.2/2.2-3.1 cm/m2 LVIDs: 2.97 2.0-3.6 cm LVPWd: 1.04 0.7-1.1 cm LA Diam: 3.80 2.7-3.8/3.0-4.0 cm LAIDs Index: 1.81 1.5-2.3 cm/m2 LV Mass: 196.43 67-162/88-224 g LV Mass Index: 93.54 43-95/49-115 g/m2 LVOT Diam: 2.40 3.0+(-)1.3 cm 2D Systolic Function EF 4C: 60.00 >55% EF 2C: 57.10 >55% EF BiP: 59.60 >55% Mitral Valve MV Pk E: 0.65 MV PK A: 0.67 MV Decel Time: 223.00 E/A: 1.00 E'Lateral: 10.00 E'Medial: 6.53 E/E' Med: 10.00 E/E' Lat: 6.50 PHT: 65.00 MVA PHT: 3.38 Decel [place]: 2.92 Aortic Valve AoV Pk Son: 1.42 AoV Mn Son: 0.94 AoV VTI: 0.31 AoV Pk Grad: 8.00 Aov Mn Grad: 4.00 PIETRO Cont.VTI: 3.78 LVOT LVOT Pk Son: 1.23 LVOT Mn Son: 0.79 LVOT VTI: 0.26 LVOT Pk Grad: 6.00 LVOT Mn Grad: 3.00 LVOT Diam: 2.40 LVOT Area: 4.52 Diastolic Function MV Pk E: 0.65 MV Pk A: 0.67 E/A: 1.00 E'Medial: 6.53 E/E' Med: 10.00 E' Laterial: 10.00 E/E' Lat: 6.50 Right Ventricle TAPSE (mm): 26.00 TVS' Son: 9.90 Tricuspid Valve TR Pk Son: 2.05 TR Pk Grad: 17.00 RA Press: 3.00 RVSP: 20.00 Great Vessels Aorta Sinus of Valsalva: 3.90 2.0-3.5 cm Ao Asc: 3.80 2.1-3.4 cm Ao Arch: 2.90 Pulmonary Veins Pulm Vein S/D 1.40 Pulmonary Valve PV Pk Son: 0.98 Peak PV Grad: 4.00 Updated in Other Vendor System with Status of Final Lalo Crain MD electronically signed on 04/12/2025 4:02:53 PM with status of Final
== END ==
LOC: HO.CARD 07:45
PROVIDERS: PCP Nurse Practitioner Family; Visit Provider Nurse Practitioner Family
DX: I77.810 Thoracic aortic ectasia (principal)
CPT/HCPCS: 93306

== ENCOUNTER → 2025-04-11 07:52 | Outpatient (BNV) | payer OTHER, SELFPAY | PROVIDERS: PCP Nurse Practitioner Family; Visit Provider Internal Medicine | DX: I35.8 Other nonrheumatic aortic valve disorders (principal); I36.1 Nonrheumatic tricuspid (valve) insufficiency; I77.810 Thoracic aortic ectasia | CPT/HCPCS: 93306 ==

== ENCOUNTER 2025-04-16 10:35 | Outpatient (REF) | payer OTHER, SELFPAY ==
--- NOTE | ~2025-04-16 | CT_ITS ---
CLINICAL HISTORY: R31.29 - Other microscopic hematuria CT abdomen and pelvis with and without contrast Comparison: None provided Findings: The lung bases are clear. There is no urinary calculus or obstructive uropathy. Postcontrast imaging demonstrates no suspicious renal lesion. Opacified portions of the ureters are unremarkable. The bladder demonstrates no lesion. The prostate gland is mildly enlarged and TURP defect suggested. The liver, gallbladder, spleen, adrenal glands and pancreas are unremarkable. No bowel obstruction. There is diverticulosis without evidence of diverticulitis. Normal appendix. No pneumatosis, free air or abscess. No acute osseous finding. Mild atherosclerotic disease present. Impression: There is no urinary calculus, obstructive uropathy or suspicious urinary tract lesion. Incidental findings as detailed. This document has been electronically signed by: Joseph Pantoja MD on 04/17/2025 11:23:07
[2025-04-16] MEDS: iohexoL 350 MG/ML 100 ML INFUS..BTL IV (11:03)
== END 2025-04-16 10:36 | disposition home or self-care (01) ==
LOC: HO.CT 10:35
PROVIDERS: PCP Nurse Practitioner Family; Visit Provider Nurse Practitioner Family
DX: R31.29 Other microscopic hematuria (principal)
CPT/HCPCS: 74178; Q9967

== ENCOUNTER → 2025-04-16 10:39 | Outpatient (BNV) | payer OTHER, SELFPAY | PROVIDERS: PCP Nurse Practitioner Family; Visit Provider Radiology Vascular & Interventional Radiology | DX: R31.29 Other microscopic hematuria (principal) | CPT/HCPCS: 74178 ==

== ENCOUNTER 2025-04-18 15:39 | Outpatient (REF) | payer OTHER, SELFPAY ==
--- NOTE | ~2025-04-18 | CT_ITS ---
EXAMINATION: CT LUNG SCREENING HISTORY: F17.210 - Nicotine dependence, cigarettes, uncomplicated TECHNIQUE: Low dose axial images were obtained from the sternal notch to upper abdomen without IV contrast per standard departmental protocol. Sagittal and coronal reformatted images were also obtained and reviewed. One or more of the following techniques was used for dose reduction: Automated exposure control, adjustment of the mA and/or kV according to patient size, use of iterative reconstruction technique. DLP: 63 mGy-cm COMPARISON: Comparison is made with the prior examination dated 04/03/2024. FINDINGS: Lung nodules: There is a 2 mm nodule at the right lung apex (series 3, image 29). There is a calcified granuloma in the right lower lobe (series 3, image 88). A 4 mm nodule is seen in the left upper lobe (series 3, image 71). Emphysema: none Coronary Calcification: none Aortic Arch Calcification: none Potentially Significant Incidentals : none Additional Chest Findings: There is no pleural or pericardial effusion. No mediastinal or axillary lymphadenopathy is identified. Visualized upper abdomen: The visualized portions of the liver, spleen, and adrenals have an unremarkable unenhanced appearance. CT/CT lung screening IMPRESSION: No suspicious pulmonary nodules are identified. LUNG-RADS ASSESSMENT: Lung-RADS 2: Benign MANAGEMENT: Continue annual screening with LDCT in 12 months Category S: N/A Electronically signed by: Zander Torres MD 04/22/2025 07:29 AM EDT
== END 2025-04-18 15:40 | disposition home or self-care (01) ==
LOC: HO.CT 15:39
PROVIDERS: PCP Nurse Practitioner Family; Visit Provider Physician Assistant Medical
DX: Z12.2 Encounter for screening for malignant neoplasm of respiratory organs (principal); F17.210 Nicotine dependence, cigarettes, uncomplicated
CPT/HCPCS: 71271

== ENCOUNTER → 2025-04-18 15:47 | Outpatient (BNV) | payer OTHER, SELFPAY | PROVIDERS: PCP Nurse Practitioner Family; Visit Provider Radiology Diagnostic Radiology | DX: Z12.2 Encounter for screening for malignant neoplasm of respiratory organs (principal); Z87.891 Personal history of nicotine dependence | CPT/HCPCS: 71271 ==

== ENCOUNTER 2025-05-26 07:06 | Outpatient (REF) | payer OTHER, SELFPAY ==
[2025-05-26 11:00] LABS: Alanine Aminotransferase 18 U/L (0-40); Albumin Level 4.2 g/dL (3.5-5.0); Alkaline Phosphatase 82 U/L (39-117); Anion Gap 12 (12-20); Aspartate Amino Transferase 25 U/L (5-37); Blood Urea Nitrogen 11 mg/dL (9-16); Calcium 8.9 mg/dL (8.4-10.2); Carbon Dioxide 25 mmol/L (22-29); Chloride 109 mmol/L (96-108); Cholesterol 141 mg/dL (<200); Estimated Glomerular Filt Rate > 60; HDL Cholesterol 30 mg/dL (>40); Potassium 3.8 mmol/L (3.3-5.1); Sodium 142 mmol/L (135-145); Total Protein 7.1 g/dL (6.5-8.0); Triglycerides 146 mg/dL (<150)
== END 2025-05-26 07:07 | disposition home or self-care (01) ==
LOC: HO.HMGCLDS 07:06
PROVIDERS: PCP Nurse Practitioner Family; Visit Provider Nurse Practitioner Family
DX: E78.5 Hyperlipidemia, unspecified (principal)
CPT/HCPCS: 36415; 80053; 80061

== ENCOUNTER 2025-06-10 10:07 | Outpatient (REF) | payer OTHER, SELFPAY | END 2025-06-10 10:08 | disposition home or self-care (01) | LOC: HO.LAB 10:07 | PROVIDERS: PCP Nurse Practitioner Family; Visit Provider Urology | DX: R31.29 Other microscopic hematuria (principal) | CPT/HCPCS: 88112; 99202 ==

== ENCOUNTER 2025-06-10 10:07 | Outpatient (AMB) | payer OTHER, SELFPAY ==
--- NOTE | 2025-06-10 10:13 | A.OFFVIS_ITS ---
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 He is a patient of Dr. Chino. He seen for the following urologic conditions - microscopic hematuria - bilateral hydrocele Discussed smoking switching to commercial vape which has been shown to be safer Bilateral hydrocele On ultrasound Minimal symptoms Normal on exam Microscopic hematuria UA 1+ today 30 year pack per day smoking history CT urogram complete - mildly enlarged prostate but no upper tract pathology Twelve month follow-up check UA PFS Medical History Fatty liver Mild ascending aorta dilatation Dyslipidemia Obesity Nicotine dependence, cigarettes, uncomplicated Family history of colonic polyps Surgical History History of colonoscopy History of surgery on arm History of left knee surgery (~2015) Family History Father No problems noted. Mother No problems noted. 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 Current occupational exposures/hazards: No Cognitive needs: No Hearing needs: No Vision needs: No Review of Systems Const Denies chills and Denies fever(s) Card Reports no additional complaints and Denies syncope Resp Denies cough GI Denies abdominal pain and Denies heartburn Reports as per HPI and Denies change in libido Neuro Denies syncope Psych Denies change in libido Endo Denies change in libido Physical Exam Const General: cooperative, healthy appearing, comfortable and no acute distress Orientation/consciousness: patient oriented x3 HEENT Face and sinus: Yes normal facial exam Mouth: moist mucous membranes Neck Neck: Yes normal visual inspection, Yes full ROM and Yes trachea midline Chest Chest palpation & inspection: normal inspection of the chest Resp Effort & Inspection: normal respiratory effort, able to speak in complete sent ences and no respiratory distress GI Inspection: Yes normal to inspection Back/Spine/Pelvis Cervical Spine: normal cervical lordosis Thoracic/Lumbar Spine: thoracic and lumbar spine normal to inspection Skin General skin exam: no rashes or lesions noted Neuro General: patient oriented x3, gait normal, tone normal and moves all extremities Extrem General: Yes normal to inspection and Yes capillary refill normal Results AMB Urinalysis, Automated UA Leukoctes 0 Delroy/uL Last Edit by Bee Miner [facility] on 06/10/25 10:23 UA Nitrite Negative Last Edit by Bee Miner [facility] on 06/10/25 10:23 UA Urobilinogen 0.2 mg/dL Last Edit by Bee Miner [facility] on 06/10/25 10:23 UA Protein 0 mg/dL Last Edit by Bee Miner [facility] on 06/10/25 10:23 UA pH 6.0 Last Edit by Bee Miner [facility] on 06/10/25 10:23 UA Blood 25 Nicolas/uL Last Edit by Bee Miner [facility] on 06/10/25 10:23 UA Specific [place] 1.015 Last Edit by Bee Miner [facility] on 06/10/25 10:2 3 UA Ketone Negative Last Edit by Bee Miner [facility] on 06/10/25 10:23 UA Bilirubin 0 mg/dL Last Edit by Bee Miner [facility] on 06/10/25 10:23 UA Glucose 0 mg/dL Last Edit by Bee Miner [facility] on 06/10/25 10:23 Results Reviewed Results Reviewed: Laboratory Last Values Urine pH (Auto) 6.0 06/10/25 10:22 Specific [place] (Auto) 1.015 06/10/25 10:22 Urine Protein (Auto) 0 mg/dL 06/10/25 10:22 Glucose (UA)(Auto) 0 mg/dL 06/10/25 10:22 Urine Ketones (Auto) Negative 06/10/25 10:22 Urine Blood (Auto) 25 Nicolas/uL 06/10/25 10:22 Urine Nitrite (Auto) Negative 06/10/25 10:22 Urine Bilirubin (Auto) 0 mg/dL 06/10/25 10:22 Urine Urobilinogen (Auto) 0.2 mg/dL 06/10/25 10:22 Leukocyte Esterase (Auto) 0 Delroy/uL 06/10/25 10:22 Assessment & Plan Assessment & Plan (1) Microscopic hematuria: Code(s): R31.29 - Other microscopic hematuria Category: Medical Plan Twelve month follow-up UA Orders: Orders Urine Cytology Today R31.29 - Other microscopic hematuria Patient Instructions: This note is constructed using voice recognition software. While every effort has been made to ensure accuracy fire watchman errors may have been included. Imaging studies, laboratory and physical exam results were discussed and reviewed in detail. No major barriers to patient understanding were identified. An opportunity to ask questions regarding the treatment plan was provided. All questions were answered. The patient expressed understanding and agreement with the above treatment plan. The patient is aware they should contact our office by phone for worsening of their current condition or the appearance of new urologic symptoms. Compliance is encouraged with any medications and followup testing that is ordered. It is a privilege to participate in the urologic care of your patient. If you have any questions or concerns regarding treatment for the above conditions, or other urologic issues, please do not hesitate to contact me. The office telephone contact is [phone]. Sincerely, Dr Oneil Dixon MD, [facility] - Urology Compassionate Specialist Care for the Genitourinary System Coding Level of Care Code New Pt Level 3 (44476) Diagnoses Microscopic hematuria R31.29
== END 2025-06-10 10:57 | disposition home or self-care (01) ==
LOC: HO.HUSH 10:07
PROVIDERS: PCP Nurse Practitioner Family; Visit Provider Urology
DX: R31.29 Other microscopic hematuria (principal)
CPT/HCPCS: 99203